=== PATIENT | female | born 1995 | race Caucasian/White ===

== ENCOUNTER 2024-05-20 22:19 | Inpatient (IN) | payer OTHER, SELFPAY ==
--- NOTE | ~2024-05-20 | CT_ITS ---
EXAMINATION: CT ABDOMEN AND PELVIS WITH CONTRAST CLINICAL INFORMATION: Upper abdominal pain. Cramping. WBC 20,000. COMPARISON: None available. TECHNIQUE: Multidetector volumetric images were obtained from the superior aspect of the liver through the pubic symphysis following administration 85 mL of Omnipaque 350 intravenous contrast. Sagittal and coronal reformatted images were obtained on the technologist's workstation. Oral contrast: No This CT examination was performed using dose optimization techniques as appropriate, variously including the following: *Automated exposure control *Adjustment of mA and/or kV according to patient size (this includes techniques or standardized protocols for targeted exams where dose is matched to indication/reason for exam; i.e. extremities or head) *Use of iterative reconstruction technique DLP: 692 mGy-cm FINDINGS: LUNG BASES: The visualized lung bases are unremarkable. LIVER, GALLBLADDER, AND BILIARY TREE: The liver is normal in size, shape, and attenuation. No focal hepatic lesion or biliary ductal dilatation is present. The gallbladder is unremarkable with no evidence of radiopaque gallstones, gallbladder wall thickening, or obvious pericholecystic inflammatory changes. PANCREAS: Unremarkable. SPLEEN: Unremarkable. ADRENAL GLANDS: Unremarkable. KIDNEYS AND URETERS: The kidneys are normal in size, shape, and attenuation. No hydronephrosis, hydroureter, or calculi seen. No perinephric stranding. BLADDER: Unremarkable. GASTROINTESTINAL TRACT: Contiguous mural thickening is present in the ascending colon and transverse colon. No intestinal dilatation noted. Normal appearance of the appendix. No free intraperitoneal fluid or gas collections. Normal appearance of the small bowel. A small sliding hiatal hernia is noted. Normal appearance of the duodenum. ABDOMINAL WALL: No significant hernia is appreciated. LYMPH NODES: Normal. VASCULAR: Unremarkable. PELVIC VISCERA: Normal appearance of the uterus and ovaries. OSSEOUS STRUCTURES: Unremarkable. CT/CT abdomen pelvis w IV con IMPRESSION: *Colitis of the ascending and transverse colon. Contiguous concentric inflammatory changes are present in the ascending and transverse colon. Findings may represent C. difficile colitis. Normal appearance of the appendix and terminal ileum. No free intraperitoneal fluid or gas collections. Electronically signed by: Brant Burch MD 05/21/2024 01:37 AM EDT
[2024-05-20 22:26] VITALS: BP 131/55; PULSE 74; RESP 16; TEMP 37.3; O2SAT 99; BMI 35.6
[2024-05-20 22:39] LABS: MANUAL DIFF FLAG NO
[2024-05-20] MEDS: diphenhydrAMINE HCL 50 MG/ML VIAL 25 MG IVPUSH (22:48)
[2024-05-20] MEDS: Acetaminophen 1,000 MG/100 ML PIGGYBACK 400 MG IV (22:48)
[2024-05-20] MEDS: Metoclopramide HCl 10 MG/2 ML VIAL IVPUSH (22:48)
[2024-05-20] MEDS: 0.9 % Sodium Chloride 1,000 ML 999 ML IV (22:53)
[2024-05-20 22:55] LABS: Basophils Absolute Auto 0.1 X10*3/uL (0.0-0.2); Basophils Percent Auto 0.4 % (0-2); Eosinophils Percent Auto 0.1 % (0-4); Hematocrit 35.6 % (37.0-47.0); Hemoglobin 12.3 g/dl (12.0-16.0); Imm Gran Abs Auto 0.21 X10*3/uL (0.00-0.03); Lymphocytes Absolute Auto 2.9 X10*3/uL (1.2-4.9); Lymphocytes Percent Auto 14.5 % (20-40); Mean Corpuscular HGB Conc 34.6 g/dl (31.0-35.0); Mean Corpuscular Hemoglobin 29.1 pg (27.0-33.0); Mean Corpuscular Volume 84.2 fL (80.0-98.0); Mean Platelet Volume 10.7 fL (9.4-12.3); Monocytes Absolute Auto 0.7 X10*3/uL (0.1-1.2); Monocytes Percent Auto 3.5 % (2-11); Neutrophils Absolute Auto 16.1 x10*3/uL (2.0-8.3); Neutrophils Percent Auto 80.5 % (45-73); Platelet Count 375 X10*3/uL (160-400); Red Blood Count 4.23 X10*6/uL (4.20-5.50); Red Cell Distribution Width 13.2 % (11.0-16.0); White Blood Count 20.1 X10*3/uL (4.8-10.8)
[2024-05-20 22:57] LABS: Alanine Aminotransferase 18 U/L (0-31); Albumin Level 4.6 g/dL (3.5-5.0); Alkaline Phosphatase 67 U/L (39-117); Anion Gap 19 (12-20); Aspartate Amino Transferase 31 U/L (5-31); Bilirubin Total 0.3 mg/dL (0.0-1.0); Blood Urea Nitrogen 12 mg/dL (9-16); Calcium 10.4 mg/dL (8.4-10.2); Carbon Dioxide 17 mmol/L (22-29); Chloride 110 mmol/L (96-108); Creatinine Clr Calc Pharmacy 132.7; Estimated Glomerular Filt Rate > 60; Glucose Random 145 mg/dL (60-115); Lipase 15 U/L (8-78); Potassium 3.2 mmol/L (3.3-5.1); Sodium 143 mmol/L (135-145); Total Protein 7.8 g/dL (6.5-8.0)
--- NOTE | 2024-05-20 23:01 | ED_ITS ---
HPI - Nausea/Vomiting/Diarrhea General Chief complaint: Nausea/Vomiting/Diarrhea Stated complaint: VOMITING FOR 2 HOURS Time Seen by Provider: 05/20/24 22:34 Source: patient, EMS and old records reviewed Mode of arrival: EMS Limitations: no limitations History of Present Illness ED Provider: PHILIPPE HPI Narrative: 28 yo female with PMH of anxiety and depression prio E. Coli stool positive in past who notes at 8pm tonight she developed abrupt onset n/v fevers, chills after eating Thai food with other people who did not get sick. She has diffuse pain, n/v but no diarrhea. No travel or abx use. No drug use or withdrawal. MD elicited complaint: nausea, vomiting and abdominal pain Onset (ago): hour(s) (8pm) Description of vomiting: watery Associated nausea: Yes Associated abdominal pain: Yes Location of pain: diffuse Radiation: diffuse Pain consistency: constant Severity: severe Quality: cramping Exacerbating factors: eating, vomiting and movement Relieving factors: none Associated symptoms: fever/chills, loss of appetite, malaise, nausea/vomiting and weakness Related Data Allergies Allergy/AdvReac Type Severity Reaction Status Date / Time almond AdvReac Rash Verified 05/20/24 22:27 morgan AdvReac Rash Verified 05/20/24 22:27 Review of Systems 2 Review of Systems: Constitutional : No Weight loss, No Fever, pos Chills ENT/Mouth : No sore throat, No Rhinorrhea Eyes: No Swelling, No Redness Cardiovascular : No Chest Pain, No SOB, NoEdema Respiratory : No Cough, No Sputum, No Wheezing Gastrointestinal : Positive Nausea, Positive Vomiting, no Diarrhea, positive abdominal Pain, No Hematochezia, No Melena Genitourinary : No Dysuria, No Urinary Frequency, No Hematuria, No Urgency Musculoskeletal : No joint pain, No Myalgias, No Joint Swelling Skin : No Skin Lesions, No rash Neuro : No Weakness, No Numbness, No Dizziness, No Headache Psych : No Anxiety/Panic, No Depression All other systems reviewed and are negative. Gastrointestinal: Gastrointestinal: Reports nausea PMFSH Past Medical History Attestation statement: The following information was validated with the patient. Source: old records reviewed Medical History (Updated 05/21/24 @ 01:50 by Elisabeth Brooks DO) Anxiety Social History Social History (Updated 05/20/24 @ 23:31 by Elisabeth Brooks DO) Patient Tobacco Use Status: Never used Tobacco Advance Directives: No Advance Directives Information Provided: No Do you have a plan to hurt others: No Plan Patient : No Physical Exam 2 Vital Signs: Vital Signs: Last Vital Signs Temp 98.0 F 05/21/24 00:00 Pulse 88 05/21/24 00:00 Resp 18 05/21/24 01:43 BP 124/78 05/21/24 00:00 Pulse Ox 99 05/21/24 00:00 O2 Del Method Room Air 05/21/24 00:00 BMI result Body Mass Index 35.6 Appearance: Alert. Oriented X3. dry heaving mild acute distress. anxious appearing. patient has no emesis in bag she does a forceful cough but no emesis comes up Eyes: Pupils equal, round and reactive to light. ENT: Pharynx dry MM Neck: Normal inspection. Neck supple. CVS: Normal heart rate and rhythm. Pulses normal. Respiratory: No respiratory distress. Breath sounds normal. Abdomen: Soft and mild diffuse ttp no rebound or guarding Skin: Skin warm and dry. pale skin color. Normal skin turgor. Extremities: No lower extremity edema. Neuro: Oriented X 3. No motor deficit. No sensory deficit. Course Course Course Narrative: UA appears contaminated at this time Reevaluation(s) Reevaluation #1: unfortunately patient has forced cough and is inducing emesis at this time will obtain EKG and she may need IM haldol (droperidol shortage) Reevaluation #2: qtc 450 at this time IM haldol ordered Reevaluation #3: at this time infection suspected 144am. IV zosyn ordered she has had no diarrhea to suggest c diff. Additional Reevaluation(s): repeat labs ordered suspect admission given intractable n/v Medications Administered Generic Name Dose Route Start Last Admin Trade Name Freq PRN Reason Stop Dose Admin Potassium Chloride 10 meq in 100 mls @ 100 mls/hr 05/21/24 00:15 05/21/24 01:45 Potassium Chloride/H20 IV 05/21/24 02:14 100 mls/hr Q1H ADELFO Administration Discontinued Medications Generic Name Dose Route Start Last Admin Trade Name Freq PRN Reason Stop Dose Admin Diphenhydramine HCl 25 mg 05/20/24 22:42 05/20/24 22:48 Diphenhydramine Hcl 50 Mg/Ml Vial IVPUSH 05/20/24 22:43 25 mg ONCE ONE Administration Haloperidol Lactate 5 mg 05/21/24 01:26 05/21/24 01:42 Haloperidol Lactate 5 Mg/Ml Vial IM 05/21/24 01:27 5 mg STAT STA Administration Acetaminophen 1,000 mg in 100 mls @ 400 mls/hr 05/20/24 22:42 05/20/24 23:10 Ofirmev IV 05/20/24 22:56 Infused ONCE ONE Infusion Sodium Chloride 1,000 mls @ 999 mls/hr 05/20/24 22:42 05/20/24 23:55 Ns IV 05/20/24 23:42 Infused .Q1H1M ONE Infusion Sodium Chloride 1,000 mls @ 999 mls/hr 05/21/24 00:02 05/21/24 00:29 Ns IV 05/21/24 01:02 999 mls/hr .Q1H1M ONE Administration Iohexol 85 ml 05/20/24 23:56 05/20/24 23:57 Iohexol 350 Mg/Ml 100 Ml Infus..Btl IV 05/20/24 23:57 85 ml ONCE ONE Administration Lorazepam 1 mg 05/20/24 22:59 05/20/24 23:12 Lorazepam 2 Mg/Ml Vial IVPUSH 05/20/24 23:00 1 mg STAT STA Administration Metoclopramide HCl 10 mg 05/20/24 22:42 05/20/24 22:48 Metoclopramide Hcl 10 Mg/2 Ml Vial IVPUSH 05/20/24 22:43 10 mg ONCE ONE Administration Morphine Sulfate 4 mg 05/21/24 01:06 05/21/24 01:43 Morphine Sulfate 4 Mg/Ml Cartridge IVPUSH 05/21/24 01:07 4 mg ONCE ONE Administration Protocol Medical Decision Making Medical Decision Making MDM Narrative: 28 yo female with PMH hx of anxiety/depression here with c/o abrupt onset n/v and abdominal cramps but no diarrhea after eating turkmen food the pain is diffuse not localized - she has been vomiting since 8pm at this time IVF, labs, CT scan of abdomen for any acute pathology - colitis/biliary colic. I have ordered nausea medications and hydration. Differential Diagnosis Differential Diagnoses: The differential diagnosis associated with the presentation includes food toxicity, enteritis, dehydration, marijuana induced emesis syndrome Admission/Observation Consideration of admission/observation: Escalation of care including admission/observation considered will admit given repeated nausea medications and no improvement Consult Healthcare Provider Management of the patient was discussed with: Hospitalist (will admit) Lab Data MDM Lab Attestation statement: I reviewed the patient's lab results. 05/20/24 22:31 05/20/24 22:31 Labs: Lab Results 05/20/24 05/20/24 05/20/24 Range/Units 22:31 23:25 23:36 WBC 20.1 H (4.8-10.8) X10*3/uL RBC 4.23 (4.20-5.50) X10*6/uL Hgb 12.3 (12.0-16.0) g/dl Hct 35.6 L (37.0-47.0) % MCV 84.2 (80.0-98.0) fL MCH 29.1 (27.0-33.0) pg MCHC 34.6 (31.0-35.0) g/dl RDW 13.2 (11.0-16.0) % Plt Count 375 (160-400) X10*3/uL MPV 10.7 (9.4-12.3) fL Immature Gran % (Auto) 1.0 H (0.0-0.4) % Neut % (Auto) 80.5 H (45-73) % Lymph % (Auto) 14.5 L (20-40) % [place] % (Auto) 3.5 (2-11) % Eos % (Auto) 0.1 (0-4) % Baso % (Auto) 0.4 (0-2) % Lymph # (Auto) 2.9 (1.2-4.9) X10*3/uL [place] # (Auto) 0.7 (0.1-1.2) X10*3/uL Eos # (Auto) 0.0 (0.0-0.4) X10*3/uL Baso # (Auto) 0.1 (0.0-0.2) X10*3/uL Abs Immat Gran (auto) 0.21 H (0.00-0.03) X10*3/uL Absolute Neuts (auto) 16.1 H (2.0-8.3) x10*3/uL Absolute Nucleated RBC 0.000 (0.0-0.012) X10*3/uL Nucleated RBC % (auto) 0.0 (0.0-0.2) /100WBC Sodium 143 (135-145) mmol/L Potassium 3.2 L (3.3-5.1) mmol/L Chloride 110 H (96-108) mmol/L Carbon Dioxide 17 L (22-29) mmol/L Anion Gap 19 (12-20) BUN 12 (9-16) mg/dL Creatinine 0.67 (0.5-1.4) mg/dL Estim Creat Clear Calc 132.7 Estimated GFR > 60 Random Glucose 145 H (60-115) mg/dL Lactic Acid 2.3 H* (0.5-2.0) mmol/L Calcium 10.4 H (8.4-10.2) mg/dL Total Bilirubin 0.3 (0.0-1.0) mg/dL AST 31 (5-31) U/L ALT 18 (0-31) U/L Alkaline Phosphatase 67 (39-117) U/L Total Protein 7.8 (6.5-8.0) g/dL Albumin 4.6 (3.5-5.0) g/dL Lipase 15 (8-78) U/L Urine Color Yellow Urine Appearance Cloudy Urine pH 6.0 (5.0-9.0) Ur Specific [place] >= 1.030 H (1.005-1.025) Urine Protein 30 (1+) H (Neg-Trace) mg/dL Urine Glucose (UA) Negative (Negative) mg/dL Urine Ketones 80 (Negative) mg/dL Urine Blood Negative (Negative) Urine Nitrite Negative (Negative) Ur Leukocyte Esterase Small (1+) H (Negative) Urine RBC 0-2 (0-2) /HPF Urine WBC 11-20 H (0-5) /HPF Ur Squamous Epith Cells 3-5 (0-2) /HPF Urine Bacteria None Seen (None Seen) Hyaline Casts 3-5 (0-2) /LPF Urine Test NEGATIVE (NEGATIVE) Urine Opiates Screen Not Detected (Not Detect) Ur Buprenorphine Scrn Not Detected (Not Detect) ng/mL Ur Oxycodone Screen Not Detected (Not Detect) ng/mL Urine Methadone Screen Not Detected (Not Detect) ng/mL Urine Fentanyl Screen Not Detected (Not Detect) Ur Barbiturates Screen Not Detected (Not Detect) Ur Phencyclidine Scrn Not Detected (Not Detect) Ur Amphetamines Screen Not Detected (Not Detect) U Benzodiazepines Scrn Not Detected (Not Detect) Urine Cocaine Screen Not Detected (Not Detect) U Marijuana (THC) Screen POSITIVE H (Not Detect) Influenza Type A (PCR) NEGATIVE (Negative) Influenza Type B (PCR) NEGATIVE (Negative) RSV RNA Qual (PCR) NEGATIVE (Negative) SARS-CoV-2 RNA (RT-PCR) NEGATIVE (Negative) Independent Interpretation I performed an independent interpretation of an: EKG and CT Scan (colitis) Interpretation: Rate: 76 Rhythm: NSR [place]: normal Normal P waves. Normal HEBERT. Normal QRS complex. ST T wave : no MARIBELL, flat t wave V1 qTC: 450 prior studies: no acute ischemia The study has been interpreted contemporaneously by me. . Radiology Impression Discussion of test interpretation with radiology: I have reviewed the radiologist's reading. Independent Historian Clinical information obtained from an independent historian. History obtained from or confirmed by: EMS Critical Care Time Critical Care Time Critical Care Time: Yes Total Critical Care Time: 60 Attestation: IVF x 2L, IV morphine for pain, IV potassium, repeat medications I attest to this time spent taking care of the patient Discharge Plan Discharge Clinical Impression: Acidosis, lactic, Acute hypokalemia, Colitis Elevated WBC count Qualifiers: Leukocytosis type: unspecified Qualified Code(s): D72.829 - Elevated white blood cell count, unspecified Nausea & vomiting Qualifiers: Vomiting type: unspecified Qualified Code(s): R11.2 - Nausea with vomiting, unspecified Patient Disposition: Admitted As Inpatient Print Language: Yoruba
[2024-05-20] MEDS: LORazepam 2 MG/ML VIAL 1 MG IVPUSH (23:12)
[2024-05-20 23:15] LABS: Influenza A PCR NEGATIVE (Negative); Influenza B PCR NEGATIVE (Negative); Resp Syncy Virus RNA Qual PCR NEGATIVE (Negative); SARS COV2 PCR INHOUSE NEGATIVE (Negative)
[2024-05-20 23:50] LABS: Appearance Urine Cloudy; Color Urine Yellow; Glucose Urine UA Negative (Negative); Leukocyte Esterase Urine Small (1+) (Negative); Nitrite Urine Negative (Negative); Specific Gravity - Urine >= 1.030 (1.005-1.025); UMIC TRIGGER UACC YES; Urine Blood Negative (Negative); Urine Ketones 80 mg/dL (Negative); Urine Protein 30 (1+) mg/dL (Neg-Trace)
[2024-05-20 23:51] LABS: UPreg QC Valid YES; Urine Pregnancy NEGATIVE (NEGATIVE)
[2024-05-20 23:53] LABS: Bacteria Urine None Seen (None Seen); RBC Urine 0-2 /HPF (0-2); UACC Culture Trigger YES
[2024-05-20] MEDS: iohexoL 350 MG/ML 100 ML INFUS..BTL 85 ML IV (23:57)
[2024-05-21] VITALS (7 sets, daily range): BP systolic 106–124; BP diastolic 55–78; PULSE 77–97; RESP 18; TEMP 36.1–37.1; O2SAT 94–99; BMI 36.7
[2024-05-21 00:03] LABS: Lactic Acid 2.3 mmol/L (0.5-2.0)
[2024-05-21 00:06] LABS: Amphetamine Screen Urine Not Detected (Not Detect); Barbiturates, Urine Not Detected (Not Detect); Benzodiazepines Screen Urine Not Detected (Not Detect); Buprenorphine Scr Not Detected (Not Detect); Cannabinoid Screen Urine POSITIVE (Not Detect); Cocaine Screen Urine Not Detected (Not Detect); Fentanyl, urine Not Detected (Not Detect); Methadone Screen, Urine Not Detected (Not Detect); Opiate Screen Urine Not Detected (Not Detect); Oxycodone Screen Urine Not Detected (Not Detect); Phencyclidine Screen Urine Not Detected (Not Detect)
--- NOTE | 2024-05-21 00:10 | MHC.EDTECH ---
This tech took over care of patient at 2300,rounded and introduced self to patient,vitals taken,pt placed in hospital attire,patient ambulated to the bathroom with a steady gait,call moreira in reach
[2024-05-21] MEDS: 0.9 % Sodium Chloride 1,000 ML 999 ML IV (00:29)
[2024-05-21] MEDS: Potassium Chloride/H20 10 MEQ/100 ML PIGGYBACK 100 MEQ IV ×2 (00:29→01:45)
--- NOTE | 2024-05-21 01:13 | ECG_ITS ---
Test Reason : QTC Blood Pressure : / mmHG Vent. Rate : 076 BPM Atrial Rate : 076 BPM P-R Int : 172 ms QRS Dur : 082 ms QT Int : 400 ms P-R-T Axes : 057 032 -02 degrees QTc Int : 450 ms Normal sinus rhythm Nonspecific T wave abnormality Abnormal ECG No previous ECGs available Referred By: Elisabeth Brooks Electronically Signed By:LISA HANEY
--- NOTE | 2024-05-21 01:26 | MHC.EDTECH ---
EKG completed per order,signed by provider
--- NOTE | 2024-05-21 01:40 | PC.NURSE ---
Patient noted to have forced cough and self inducing vomiting. Dr Brooks made aware.
[2024-05-21] MEDS: Haloperidol Lactate 5 MG/ML VIAL IM (01:42)
[2024-05-21] MEDS: Morphine Sulfate 4 MG/ML CARTRIDGE IVPUSH (01:43)
[2024-05-21 01:45] LABS: Reflex Lactate? Lactic Acid Added
[2024-05-21 02:04] LABS: Hemoglobin 10.9 g/dl (12.0-16.0); Mean Corpuscular HGB Conc 34.1 g/dl (31.0-35.0); Mean Corpuscular Hemoglobin 29.1 pg (27.0-33.0); Mean Corpuscular Volume 85.3 fL (80.0-98.0); Mean Platelet Volume 10.4 fL (9.4-12.3); Platelet Count 278 X10*3/uL (160-400); Red Blood Count 3.75 X10*6/uL (4.20-5.50); Red Cell Distribution Width 13.2 % (11.0-16.0); White Blood Count 18.2 X10*3/uL (4.8-10.8)
--- NOTE | 2024-05-21 02:05 | PC.NURSE ---
Patient medicated per MAR, labs drawn and sent. Patient currently offers no complaints call moreira in reach, plan of care ongoing.
[2024-05-21] MEDS: Piperacillin Sodium/Tazobactam 3.375 GM in 0.9 % Sodium Chloride 50 ML IV ×3 (02:13→17:29)
[2024-05-21 02:23] LABS: ~Lactic Acid-LAB USE ONLY 2.2 mmol/L (0.5-2.0)
--- NOTE | 2024-05-21 02:24 | PC.NURSE ---
Lab called in critical lactic level 2.2, Dr. Stone notified.
[2024-05-21 03:04] LABS: Cancel Lactic Acid Canceled
--- NOTE | 2024-05-21 03:04 | P.HPHOSP_ITS ---
History of Present Illness Date of Service: 05/21/24 Attending physician on admission: Nohemy Duncan Chief Complaint: Abdominal pain, nausea and vomiting Ysabel Fermin is a 28 years old woman with past medical history significant for E coli stool positive and depression presents to the emergency department complaining of periumbilical abdominal pain associated with nausea and multiple events of vomiting diastolic last night around 20:00. Last meal before symptom was [place] food. Reported subjective fever and chills. She denied diarrhea. Did not report any headache, palpitations or dizziness. Did not report any cardiopulmonary or genitourinary symptoms. Denies history of STDs. She consumes marijuana (edibles) almost every day. Denies illicit drug use, tobacco smoking or alcohol abuse. In the ED, she was found to have normal vital signs. Blood workup showed leukocytosis of 20.1 and lactic acidosis of 2.3. There is hyperchloremia and hypokalemia. CO2 is 17. Urinalysis consistent with UTI. Urine drug screen spasticity for marijuana. Viral testing for influenza, RSV and COVID-19 is negative. Abdomen and pelvis CT scan with IV contrast showed finding consistent with colitis of the ascending and transverse colon with normal appearance of the appendix and terminal ileum without free intraperitoneal fluid or gas collections. ECG showed normal sinus rhythm, heart rate 76 bpm. ED tx: Reglan 10 mg IV, Benadryl 25 mg IV, acetaminophen ground g IV, Ativan 1 mg IV, NS 2 L bolus, KCl IV, Haldol 5 mg IM, Zosyn 3.375 g IV Review of Systems 2 Review of Systems: All 12 systems were reviewed and normal except as noted in HPI. [facility] Medical History (Updated 05/21/24 @ 01:50 by Elisabeth Brooks DO) Anxiety Social History (Updated 05/20/24 @ 23:31 by Elisabeth Brooks DO) Patient Tobacco Use Status: Never used Tobacco Advance Directives: No Advance Directives Information Provided: No Do you have a plan to hurt others: No Plan Patient : No Meds Allergies Allergy/AdvReac Type Severity Reaction Status Date / Time almond AdvReac Rash Verified 05/20/24 22:27 morgan AdvReac Rash Verified 05/20/24 22:27 Active Medications: Current Medications Lactated Ringer's (Lr) 1,000 mls @ 100 mls/hr IVCONT .Q10H [place] Sodium Chloride (0.9 % Sodium Chloride Flush 3 Ml Syringe) 3 ml IVFLUSH QSHIFT [place] Home Medications ?Medication ?Instructions ?Recorded ?Confirmed ?Last Taken ?Type hydroxyzine HCl 50 mg tablet 50 mg PO BEDTIME 05/21/24 05/21/24 Unknown History sertraline 100 mg tablet 100 mg PO DAILY 05/21/24 05/21/24 Unknown History Physical Exam 2 Vital Signs and Narrative: Vital Signs: Last Vital Signs Temp 98.0 F 05/21/24 00:00 Pulse 88 05/21/24 00:00 Resp 18 05/21/24 01:43 BP 124/78 05/21/24 00:00 Pulse Ox 99 05/21/24 00:00 O2 Del Method Room Air 05/21/24 00:00 BMI result Body Mass Index 35.6 Constitutional - Drowsy. Able to answer questions. HEENT - PER, EOMI. Normal sclerae. Dry oral mucosa. Heart - S1S2, RRR, No murmurs Lungs - Normal lung expansion, Normal respiratory effort, No respiratory distress, CTA bilaterally Abdomen l - increased bowel sounds, no distention, periumbilical tenderness without guarding or rebound. Extremities - no calf tenderness bilaterally, no swelling Musculoskeletal - Normal inspection, normal ROM Skin - Warm/Dry Neurological - Drowsy focal weakness grossly noted. Normal speech. Psychological - Depressed affect Results Labs 05/21/24 01:58 05/20/24 22:31 Labs: Laboratory Results - last 24 hr 05/20/24 05/20/24 05/20/24 22:31 23:25 23:36 MCV 84.2 MCH 29.1 MCHC 34.6 RDW 13.2 Plt Count 375 MPV 10.7 Immature Gran % (Auto) 1.0 H Neut % (Auto) 80.5 H Lymph % (Auto) 14.5 L [place] % (Auto) 3.5 Eos % (Auto) 0.1 Baso % (Auto) 0.4 Lymph # (Auto) 2.9 [place] # (Auto) 0.7 Eos # (Auto) 0.0 Baso # (Auto) 0.1 Abs Immat Gran (auto) 0.21 H Absolute Neuts (auto) 16.1 H Absolute Nucleated RBC 0.000 Nucleated RBC % (auto) 0.0 Anion Gap 19 Estim Creat Clear Calc 132.7 Estimated GFR > 60 Random Glucose 145 H Lactic Acid 2.3 H* Lactic Acid F/U @ 2Hr Calcium 10.4 H Total Bilirubin 0.3 AST 31 ALT 18 Alkaline Phosphatase 67 Total Protein 7.8 Albumin 4.6 Lipase 15 Urine Color Yellow Urine Appearance Cloudy Urine pH 6.0 Ur Specific [place] >= 1.030 H Urine Protein 30 (1+) H Urine Glucose (UA) Negative Urine Ketones 80 Urine Blood Negative Urine Nitrite Negative Ur Leukocyte Esterase Small (1+) H Urine RBC 0-2 Urine WBC 11-20 H Ur Squamous Epith Cells 3-5 Urine Bacteria None Seen Hyaline Casts 3-5 Urine Test NEGATIVE Urine Opiates Screen Not Detected Ur Buprenorphine Scrn Not Detected Ur Oxycodone Screen Not Detected Urine Methadone Screen Not Detected Urine Fentanyl Screen Not Detected Ur Barbiturates Screen Not Detected Ur Phencyclidine Scrn Not Detected Ur Amphetamines Screen Not Detected U Benzodiazepines Scrn Not Detected Urine Cocaine Screen Not Detected U Marijuana (THC) Screen POSITIVE H Influenza Type A (PCR) NEGATIVE Influenza Type B (PCR) NEGATIVE RSV RNA Qual (PCR) NEGATIVE SARS-CoV-2 RNA (RT-PCR) NEGATIVE 05/21/24 01:58 MCV 85.3 MCH 29.1 MCHC 34.1 RDW 13.2 Plt Count 278 D MPV 10.4 Immature Gran % (Auto) Neut % (Auto) Lymph % (Auto) [place] % (Auto) Eos % (Auto) Baso % (Auto) Lymph # (Auto) [place] # (Auto) Eos # (Auto) Baso # (Auto) Abs Immat Gran (auto) Absolute Neuts (auto) Absolute Nucleated RBC 0.000 Nucleated RBC % (auto) 0.0 Anion Gap Estim Creat Clear Calc Estimated GFR Random Glucose Lactic Acid Lactic Acid F/U @ 2Hr 2.2 H* Calcium Total Bilirubin AST ALT Alkaline Phosphatase Total Protein Albumin Lipase Urine Color Urine Appearance Urine pH Ur Specific [place] Urine Protein Urine Glucose (UA) Urine Ketones Urine Blood Urine Nitrite Ur Leukocyte Esterase Urine RBC Urine WBC Ur Squamous Epith Cells Urine Bacteria Hyaline Casts Urine Test Urine Opiates Screen Ur Buprenorphine Scrn Ur Oxycodone Screen Urine Methadone Screen Urine Fentanyl Screen Ur Barbiturates Screen Ur Phencyclidine Scrn Ur Amphetamines Screen U Benzodiazepines Scrn Urine Cocaine Screen U Marijuana (THC) Screen Influenza Type A (PCR) Influenza Type B (PCR) RSV RNA Qual (PCR) SARS-CoV-2 RNA (RT-PCR) Imaging Radiologist's Impressions: Impressions Abdomen/Pelvis CT 05/20/24 23:58 IMPRESSION: *Colitis of the ascending and transverse colon. Contiguous concentric inflammatory changes are present in the ascending and transverse colon. Findings may represent C. difficile colitis. Normal appearance of the appendix and terminal ileum. No free intraperitoneal fluid or gas collections. Electronically signed by: Brant Burch MD 05/21/2024 01:37 AM EDT Assessment and Plan (1) Colitis: Status: Acute (2) Nausea & vomiting: Qualifiers: Vomiting type: unspecified Qualified Code(s): R11.2 - Nausea with vomiting, unspecified Status: Acute (3) Acute hypokalemia: Status: Acute (4) Acidosis, lactic: Status: Acute (5) Elevated WBC count: Qualifiers: Leukocytosis type: unspecified Qualified Code(s): D72.829 - Elevated white blood cell count, unspecified Status: Acute Plan Ysabel Fermin is a 28 y/o woman admitted with: * Abdominal pain, nausea and vomiting; no diarrhea; possible secondary to colitis and/or cannabinoid hyperemesis. Admit to hospitalist service. Continue IV fluids. Continue empiric IV antibiotic therapy with Zosyn. Antiemetic therapy as needed. IV pain meds. Stool cultures. Patient advised to avoid marijuana consumption. * Hypokalemia, secondary to vomiting. Replete as needed. Continue to monitor potassium level. * Mild lactic acidosis, not convicted this is secondary to severe sepsis. Unclear etiology. Blood culture obtained -will follow results. * Leukocytosis, likely secondary to vomiting. Continue IV fluids. Continue to monitor WBC count. * Presumed UTI. Continue Zosyn. Check urine culture. * Depression. Continue home medications when able. DVT prophylaxis: Early ambulation Code status: Full Patient will need hospitalization for at least 2 midnights for ongoing abdominal pain, nausea and vomiting due to marijuana use and acute colitis; will need IV fluids, antiemetic therapy, pain control and empiric IV antibiotic therapy Quality Stroke Does the patient have a stroke diagnosis?: No VTE Prior VTE?: No VTE Risk Level:: Medical - moderate - high VTE Device Contraindication: N/A - Device Ordered VTE Drug Contraindication: Treatment Not Indicated
[2024-05-21] MEDS: Lactated Ringers 1,000 ML 100 ML IVCONT ×2 (03:40→17:30)
[2024-05-21 04:01] LABS: Reflex Lactate? 2 Y
[2024-05-21] MEDS: Prochlorperazine Edisylate 10 MG/2 ML VIAL 5 MG IVPUSH (04:46)
[2024-05-21 05:34] LABS: Alanine Aminotransferase 26 U/L (0-31); Albumin Level 4.7 g/dL (3.5-5.0); Alkaline Phosphatase 66 U/L (39-117); Anion Gap 18 (12-20); Aspartate Amino Transferase 40 U/L (5-31); Bilirubin Total 0.3 mg/dL (0.0-1.0); Blood Urea Nitrogen 7 mg/dL (9-16); Calcium 8.6 mg/dL (8.4-10.2); Carbon Dioxide 16 mmol/L (22-29); Chloride 109 mmol/L (96-108); Creatinine Clr Calc Pharmacy 141.2; Estimated Glomerular Filt Rate > 60; Glucose Random 131 mg/dL (60-115); Sodium 139 mmol/L (135-145); Total Protein 8.2 g/dL (6.5-8.0)
[2024-05-21] MEDS: Pantoprazole Sodium 40 MG/10 ML VIAL IVPUSH (06:30)
[2024-05-21 06:59] LABS: Basophils Percent Auto 0.1 % (0-2); Hematocrit 34.3 % (37.0-47.0); Hemoglobin 11.3 g/dl (12.0-16.0); Imm Gran Abs Auto 0.05 X10*3/uL (0.00-0.03); Imm Gran Pct Auto 0.3 % (0.0-0.4); Lymphocytes Absolute Auto 0.7 X10*3/uL (1.2-4.9); Lymphocytes Percent Auto 4.4 % (20-40); MANUAL DIFF FLAG SCAN; Mean Corpuscular HGB Conc 32.9 g/dl (31.0-35.0); Mean Corpuscular Hemoglobin 28.8 pg (27.0-33.0); Mean Corpuscular Volume 87.3 fL (80.0-98.0); Mean Platelet Volume 10.4 fL (9.4-12.3); Monocytes Absolute Auto 0.3 X10*3/uL (0.1-1.2); Monocytes Percent Auto 1.7 % (2-11); Neutrophils Absolute Auto 14.3 x10*3/uL (2.0-8.3); Neutrophils Percent Auto 93.5 % (45-73); Platelet Count 288 X10*3/uL (160-400); Red Blood Count 3.93 X10*6/uL (4.20-5.50); Red Cell Distribution Width 13.2 % (11.0-16.0); SCAN SMEAR FLAG 1; White Blood Count 15.3 X10*3/uL (4.8-10.8)
--- NOTE | 2024-05-21 07:21 | PC.NURSE ---
this nurse took over patient care of patient from [facility] at 7am. pt sleeping, woke to verbal stimulus, vitals previously stable, IVF running per order, pt awaiting inpt bed, will continue plan of care
[2024-05-21 07:31] LABS: SLIDE REVIEW VERIFIED
--- NOTE | 2024-05-21 08:10 | PHA.MEDREC ---
Pharmacy Consult ? Medication Reconciliation RN has completed the medication reconciliation,[facility] reviewed.
--- NOTE | 2024-05-21 11:09 | MHC.CM.PN ---
PT IS A STUDENT IS INDEPENDENT HAS OWN RIDE HOME
--- NOTE | 2024-05-21 12:21 | HO.PM.IMPN ---
Subjective Subjective Date of Service: 05/21/24 Interval History: abd pain Review of Systems still has abd pain no nausea or vomiting Physical Exam Vital Signs: Vital Signs: Last Vital Signs Temp 96.9 F 05/21/24 09:35 Pulse 77 05/21/24 09:35 Resp 18 05/21/24 09:35 BP 106/55 L 05/21/24 09:35 Pulse Ox 94 05/21/24 09:35 O2 Del Method Room Air 05/21/24 09:35 BMI result Body Mass Index 36.7 Appearance: Alert.? Oriented X3.. cvs: rrr, [id number] , no murmur res: clear to auscultation ,no rhonchii or wheezing abd: no rebound or guarding, abd pain unchanged , bs present. ext pulses present , no cyanosis . neuro: axo3 , nonfocal. Objective Data Active Medications Lactated Ringer's (Lr) 1,000 mls @ 100 mls/hr IVCONT .Q10H [facility] Last Admin: 05/21/24 12:05 Dose: Not Given Documented By: SRAVANIEMA Non-Admin Reason: IV Running Piperacillin Sod/Tazobactam (Sod 3.375 gm/ Sodium Chloride) 50 mls @ 100 mls/hr IV Q8H [facility] Last Infusion: 05/21/24 11:19 Dose: Infused Documented By: MARLEY Acetaminophen (Ofirmev) 1,000 mg in 100 mls @ 400 mls/hr IV Q6H PRN PRN Reason: Pain, Moderate(Pain Scale 4-6) Ketorolac Tromethamine (Ketorolac Tromethamine 30 Mg/Ml Vial) 30 mg IVPUSH Q6H PRN PRN Reason: Pain, Severe (Pain Scale 7-10) Pantoprazole Sodium (Pantoprazole Sodium 40 Mg/10 Ml Vial) 40 mg IVPUSH DAILY@0630 [facility] Last Admin: 05/21/24 06:30 Dose: 40 mg Documented By: DEMAR Prochlorperazine Edisylate (Prochlorperazine Edisylate 10 Mg/2 Ml Vial) 5 mg IVPUSH Q6H PRN PRN Reason: Nausea and Vomiting Last Admin: 05/21/24 04:46 Dose: 5 mg Documented By: DEMAR Sodium Chloride (0.9 % Sodium Chloride Flush 3 Ml Syringe) 3 ml IVFLUSH QSHIFT [place] Last Admin: 05/21/24 07:05 Dose: Not Given Documented By: SRI Non-Admin Reason: IV Running Labs 05/21/24 06:51 05/21/24 05:03 Labs: Laboratory Results - last 24 hr 05/20/24 05/20/24 05/20/24 22:31 23:25 23:36 MCV 84.2 MCH 29.1 MCHC 34.6 RDW 13.2 Plt Count 375 MPV 10.7 Immature Gran % (Auto) 1.0 H Neut % (Auto) 80.5 H Lymph % (Auto) 14.5 L [place] % (Auto) 3.5 Eos % (Auto) 0.1 Baso % (Auto) 0.4 Lymph # (Auto) 2.9 [place] # (Auto) 0.7 Eos # (Auto) 0.0 Baso # (Auto) 0.1 Abs Immat Gran (auto) 0.21 H Absolute Neuts (auto) 16.1 H Absolute Nucleated RBC 0.000 Nucleated RBC % (auto) 0.0 Smear Tech's Comments Anion Gap 19 Estim Creat Clear Calc 132.7 Estimated GFR > 60 Random Glucose 145 H Lactic Acid 2.3 H* Lactic Acid F/U @ 2Hr Calcium 10.4 H Magnesium Total Bilirubin 0.3 AST 31 ALT 18 Alkaline Phosphatase 67 Total Protein 7.8 Albumin 4.6 Lipase 15 Urine Color Yellow Urine Appearance Cloudy Urine pH 6.0 Ur Specific [place] >= 1.030 H Urine Protein 30 (1+) H Urine Glucose (UA) Negative Urine Ketones 80 Urine Blood Negative Urine Nitrite Negative Ur Leukocyte Esterase Small (1+) H Urine RBC 0-2 Urine WBC 11-20 H Ur Squamous Epith Cells 3-5 Urine Bacteria None Seen Hyaline Casts 3-5 Urine Test NEGATIVE Urine Opiates Screen Not Detected Ur Buprenorphine Scrn Not Detected Ur Oxycodone Screen Not Detected Urine Methadone Screen Not Detected Urine Fentanyl Screen Not Detected Ur Barbiturates Screen Not Detected Ur Phencyclidine Scrn Not Detected Ur Amphetamines Screen Not Detected U Benzodiazepines Scrn Not Detected Urine Cocaine Screen Not Detected U Marijuana (THC) Screen POSITIVE H Influenza Type A (PCR) NEGATIVE Influenza Type B (PCR) NEGATIVE RSV RNA Qual (PCR) NEGATIVE SARS-CoV-2 RNA (RT-PCR) NEGATIVE 11/02/24 11/02/24 11/02/24 01:58 05:03 06:51 MCV 85.3 87.3 MCH 29.1 28.8 MCHC 34.1 32.9 RDW 13.2 13.2 Plt Count 278 D 288 MPV 10.4 10.4 Immature Gran % (Auto) 0.3 Neut % (Auto) 93.5 H Lymph % (Auto) 4.4 L [place] % (Auto) 1.7 L Eos % (Auto) 0.0 Baso % (Auto) 0.1 Lymph # (Auto) 0.7 L [place] # (Auto) 0.3 Eos # (Auto) 0.0 Baso # (Auto) 0.0 Abs Immat Gran (auto) 0.05 H Absolute Neuts (auto) 14.3 H Absolute Nucleated RBC 0.000 0.000 Nucleated RBC % (auto) 0.0 0.0 Smear Tech's Comments VERIFIED Anion Gap 18 Estim Creat Clear Calc 141.2 Estimated GFR > 60 Random Glucose 131 H Lactic Acid 1.0 Lactic Acid F/U @ 2Hr 2.2 H* Calcium 8.6 D Magnesium 2.0 Total Bilirubin 0.3 AST 40 H ALT 26 Alkaline Phosphatase 66 Total Protein 8.2 H Albumin 4.7 Lipase Urine Color Urine Appearance Urine pH Ur Specific [place] Urine Protein Urine Glucose (UA) Urine Ketones Urine Blood Urine Nitrite Ur Leukocyte Esterase Urine RBC Urine WBC Ur Squamous Epith Cells Urine Bacteria Hyaline Casts Urine Test Urine Opiates Screen Ur Buprenorphine Scrn Ur Oxycodone Screen Urine Methadone Screen Urine Fentanyl Screen Ur Barbiturates Screen Ur Phencyclidine Scrn Ur Amphetamines Screen U Benzodiazepines Scrn Urine Cocaine Screen U Marijuana (THC) Screen Influenza Type A (PCR) Influenza Type B (PCR) RSV RNA Qual (PCR) SARS-CoV-2 RNA (RT-PCR) Assessment and Plan (1) Colitis: Status: Acute (2) Acute hypokalemia: Status: Acute Plan 28 y/o woman admitted with: Abdominal pain, nausea and vomiting; no diarrhea; possible secondary to colitis and/or cannabinoid hyperemesis. Continue IV fluids and empiric IV antibiotic therapy with Zosyn. Antiemetic therapy as needed. IV pain meds. Stool cultures. Patient advised to avoid marijuana consumption. Hypokalemia, secondary to vomiting. Repleted and resolved. Mild lactic acidosis, not convicted this is secondary to severe sepsis. Unclear etiology. Blood culture obtained -will follow results. Leukocytosis, likely secondary to vomiting. Continue IV fluids. Continue to monitor WBC count. Presumed UTI. Continue Zosyn. Check urine culture. Depression. Continue home medications when able. DVT prophylaxis: Early ambulation need hospitalization for ongoing abdominal pain, nausea and vomiting due to marijuana use and acute colitis; will need IV fluids, antiemetic therapy, pain control and empiric IV antibiotic therapy Quality Stroke Does the patient have a stroke diagnosis?: No VTE Prior VTE?: No VTE Risk Level:: Medical - moderate - high VTE Device Contraindication: N/A - Device Ordered VTE Drug Contraindication: Treatment Not Indicated
[2024-05-21] MEDS: Sertraline HCL 100 MG TABLET PO (12:52)
[2024-05-21] MEDS: Ketorolac Tromethamine 30 MG/ML VIAL IVPUSH (17:29)
[2024-05-21] MEDS: Melatonin 3 MG TABLET 6 MG PO (21:49)
[2024-05-21] MEDS: hydrOXYzine HCL 50 MG TABLET PO (21:49)
[2024-05-21] MEDS: 0.9 % Sodium Chloride Flush 3 ML SYRINGE IVFLUSH (21:51)
[2024-05-22] MEDS: Piperacillin Sodium/Tazobactam 3.375 GM in 0.9 % Sodium Chloride 50 ML IV ×2 (02:17→11:15)
[2024-05-22] MEDS: Lactated Ringers 1,000 ML 100 ML IVCONT (02:18)
[2024-05-22 03:56] VITALS: BP 118/71; PULSE 66; RESP 16; TEMP 36.3; O2SAT 98
[2024-05-22] MEDS: Pantoprazole Sodium 40 MG/10 ML VIAL IVPUSH (06:01)
[2024-05-22] MEDS: Sertraline HCL 100 MG TABLET PO (07:26)
[2024-05-22 08:06] VITALS: BP 118/76; PULSE 64; RESP 18; TEMP 36.1; O2SAT 96
[2024-05-22 08:57] LABS: Adenovirus F 40/41 Not Detected (Not Detect.); Astrovirus Not Detected (Not Detect.); Campylobacter Not Detected (Not Detect.); Cryptosporidium Not Detected (Not Detect.); Cyclospora cayetanensis Not Detected (Not Detect.); E. coli EAEC Not Detected (Not Detect.); E. coli EPEC Not Detected (Not Detect.); E. coli ETEC Not Detected (Not Detect.); E. coli STEC Not Detected (Not Detect.); Entamoeba histolytica Not Detected (Not Detect.); Giardia lamblia Not Detected (Not Detect.); Plesiomonas shigelloides Not Detected (Not Detect.); Rotavirus A Not Detected (Not Detect.); Salmonella Not Detected (Not Detect.); Sapovirus Not Detected (Not Detect.); Shigella sp./EIEC Not Detected (Not Detect.); Vibrio Not Detected (Not Detect.); Vibrio Cholerae Not Detected (Not Detect.); Yersinia enterocolitica Not Detected (Not Detect.)
--- NOTE | 2024-05-22 12:21 | MHC.CM.PN ---
PT DCD HOME SELF CARE
[2024-05-22] MEDS: Amoxicillin/Potassium Clav 875 MG TABLET PO (12:22)
--- NOTE | 2024-05-22 12:23 | P.DS_ITS ---
DS: Providers Provider Date of Service: 05/22/24 Date of admission: 05/21/24 02:57 Date of discharge: 05/22/24 Primary care physician: None Physician Attending physician on discharge: David Joe Discharging clinician: David Joe DS: Diagnosis Discharge Diagnosis (1) Colitis: Status: Acute (2) Acute hypokalemia: Status: Acute DS: Summary Hospital Course Hospital Course: HPI: 28 years old woman with past medical history significant for E coli stool positive and depression presents to the emergency department complaining of periumbilical abdominal pain associated with nausea and multiple events of vomiting diastolic last night around 20:00. Last meal before symptom was Indonesian food. Reported subjective fever and chills. She denied diarrhea. Did not report any headache, palpitations or dizziness. Did not report any cardiopulmonary or genitourinary symptoms. Denies history of STDs. She consumes marijuana (edibles) almost every day. Denies illicit drug use, tobacco smoking or alcohol abuse. In the ED, she was found to have normal vital signs. Blood workup showed leukocytosis of 20.1 and lactic acidosis of 2.3. There is hyperchloremia and hypokalemia. CO2 is 17. Urinalysis consistent with UTI. Urine drug screen spasticity for marijuana. Viral testing for influenza, RSV and COVID-19 is negative. Abdomen and pelvis CT scan with IV contrast showed finding consistent with colitis of the ascending and transverse colon with normal appearance of the appendix and terminal ileum without free intraperitoneal fluid or gas collections. ECG showed normal sinus rhythm, heart rate 76 bpm. ED tx: Reglan 10 mg IV, Benadryl 25 mg IV, acetaminophen ground g IV, Ativan 1 mg IV, NS 2 L bolus, KCl IV, Haldol 5 mg IM, Zosyn 3.375 g IV Hospital course: Patient came to the hospital because of abdominal pain nausea vomiting-found to have leukocytosis, CT abdomen showed colitis: gastrointestinal panel sent, in addition patient was found to have hypokalemia mild, also mild acute lactic acidosis, patient was started on IV antibiotics, IV hydration. Acute lactic acidosis possibly related to dehydration/nausea vomiting, not due to sepsis- resolved with hydration. Blood culture negative at 24 hours, UA showed mild pyuria but patient does not have any urinary complaints. Urine culture is strep agalactiae (grp B). With above supportive care patient seems to be improved significantly, no abdominal pain, no nausea vomiting and tolerating diet.GI P panel-? Question of norovirus but needs to be confirmed yet since patient is improved,Above symptoms are likely related to colitis which is improving with IV antibiotics, patient was switched to p.o. Augmentin 875 mg p.o. b.i.d. for 7 days. Above management discussed with the patient detail length she understand and in agreement with the above plan, time spent 40 minute. Time Attestation Total time managing care of this patient today: 40 mintues. Discharge Coordination Time (in mins): 40 min Quality: Safe Use of Opioids Does Pt have an Active Cancer Diagnosis on the Problem List?: No Quality: Stroke Does the patient have a stroke diagnosis?: No Physical Exam Vital Signs: Vital Signs: Last Vital Signs Temp 96.9 F 05/22/24 08:06 Pulse 64 05/22/24 08:06 Resp 18 05/22/24 08:06 BP 118/76 05/22/24 08:06 Pulse Ox 96 05/22/24 08:06 O2 Del Method Room Air 05/22/24 08:06 BMI result Body Mass Index 36.7 Appearance: Alert.? Oriented X3.? cvs: rrr, [id number] . res: clear to auscultation ,no rhonchii or wheezing abd: no rebound or guarding ,nt, bs present. ext pulses present , no cyanosis . neuro: axo3 , nonfocal. DS: Data Data Completed and Pending Labs on day of discharge: Laboratory Results - last 24 hr 05/21/24 12:49 C. difficile Tox B Gene TNP Preliminary micro results at discharge 05/20/24 23:37 Blood Culture - Preliminary Blood - Venous No growth after 24 hours. 05/20/24 23:25 Blood Culture - Preliminary Blood - Venous No growth after 24 hours. Imaging Chest x-ray: Radiologist's impression: ITS Impressions Abdomen/Pelvis CT 05/20/24 23:58 IMPRESSION: *Colitis of the ascending and transverse colon. Contiguous concentric inflammatory changes are present in the ascending and transverse colon. Findings may represent C. difficile colitis. Normal appearance of the appendix and terminal ileum. No free intraperitoneal fluid or gas collections. Electronically signed by: Brant Burch MD 05/21/2024 01:37 AM EDT Discharge Plan Discharge Anticipated Discharge Date/Time: 05/22/24 12:07 Patient Disposition: Home, Self-Care Discharge Diagnosis: acute colitis , hypokalemia Referrals: Physician,None [Primary Care Provider] - 1 Week Discharge Medications: New amoxicillin-pot clavulanate 875-125 mg tablet 1 tab PO BID Qty: 13 0RF Continued sertraline 100 mg tablet 100 mg PO DAILY hydroxyzine HCl 50 mg tablet 50 mg PO BEDTIME Discharge Orders: Discharge Order (Routine); Ordered 05/22/24 Ordered By: David Joe Diet: Advance to usual diet Activity on Discharge: As tolerated Stand Alone Forms: Patient Portal Discharge page Print Language: Albanian Care Plan Goals: Patient came to the hospital because of abdominal pain nausea vomiting-found to have leukocytosis, CT abdomen showed colitis: gastrointestinal panel sent, in addition patient was found to have hypokalemia mild, also mild acute lactic acidosis, patient was started on IV antibiotics, IV hydration. Acute lactic acidosis possibly related to dehydration/nausea vomiting, not due to sepsis- resolved with hydration. Blood culture negative at 24 hours, UA showed mild pyuria but patient does not have any urinary complaints. Urine culture is strep agalactiae (grp B). With above supportive care patient seems to be improved significantly, no abdominal pain, no nausea vomiting and tolerating diet.GI P panel-? Question of norovirus but needs to be confirmed yet since patient is improved,Above symptoms are likely related to colitis which is improving with IV antibiotics, patient was switched to p.o. Augmentin 875 mg p.o. b.i.d. for 7 days. Health Concerns: Follow-up GI panel results outpatient with PCP. Repeat urine culture outpatient as per PCP. Complete Augmentin 875 p.o. b.i.d. for 7 days. Plan of Treatment: As above. Assessment: As above. Patient Instructions: Colitis (ED)
[2024-05-22 13:33] LABS: Anion Gap 16 (12-20); Blood Urea Nitrogen 7 mg/dL (9-16); Calcium 9.1 mg/dL (8.4-10.2); Carbon Dioxide 23 mmol/L (22-29); Chloride 108 mmol/L (96-108); Creatinine Clr Calc Pharmacy 131.1; Estimated Glomerular Filt Rate > 60; Glucose Random 104 mg/dL (60-115); Potassium 3.7 mmol/L (3.3-5.1); Sodium 143 mmol/L (135-145)
[2024-05-25 10:55] LABS: Norovirus Stool PCR NOT DETECTED
== END 2024-05-22 14:21 | disposition home or self-care (01) | DRG 392 ==
LOC: HO.ED 05-21 01:53 → HO.EDOVER 05-21 03:06 → HO.S3 05-21 07:47
PROVIDERS: Admitting Provider Internal Medicine; Emergency Provider Emergency Medicine; Visit Provider Internal Medicine
DX: K52.9 Noninfective gastroenteritis and colitis, unspecified (principal); E87.21 Acute metabolic acidosis; E86.0 Dehydration; E87.6 Hypokalemia; R11.2 Nausea with vomiting, unspecified; F12.90 Cannabis use, unspecified, uncomplicated; E87.8 Other disorders of electrolyte and fluid balance, not elsewhere classified; Z20.822 Contact with and (suspected) exposure to COVID-19; Z79.899 Other long term (current) drug therapy
CPT/HCPCS: 0241U; 36415; 74177; 80048; 80053; 80307; 81001; 81025; 83605; 83690; 83735; 85025; 85027; 87040; 87086; 87147; 87493; 87507; 93005; 99285; J0131; J0737; J1200; J1630; J1885; J2060; J2270; J2470; J2543; J2765; J3480; J7120; Q9967

== ENCOUNTER → 2024-05-21 01:13 | Outpatient (BNV) | payer OTHER, SELFPAY | PROVIDERS: Admitting Provider Internal Medicine; Emergency Provider Emergency Medicine; Visit Provider Internal Medicine | DX: R10.9 Unspecified abdominal pain (principal); R11.2 Nausea with vomiting, unspecified; R94.31 Abnormal electrocardiogram [ECG] [EKG] | CPT/HCPCS: 93010 ==

== ENCOUNTER → 2024-05-21 02:57 | Outpatient (BNV) | payer OTHER, SELFPAY | PROVIDERS: Admitting Provider Internal Medicine; Emergency Provider Emergency Medicine; Visit Provider Internal Medicine | DX: K52.9 Noninfective gastroenteritis and colitis, unspecified (principal); E87.6 Hypokalemia | CPT/HCPCS: 99223; 99239; 99499 ==

== ENCOUNTER 2025-05-06 10:11 | Emergency (ER) | payer OTHER, SELFPAY ==
--- OUTSIDE RECORDS SUMMARY | 2021-05-27 05:30 | XMS_ITS | Continuity of Care Document ---
Author Organization [facility] Address [address] [facility] [address] [place] [id number] Phone Care Team Providers Care Plant Tour Guide Name Role Phone Yue Osorio MD Unavailable Unavailable Allergies, Adverse Reactions, Alerts Substance Reaction Status Criticality No Known Allergies Active No Inform ation Medications Medication Instructions Dosage Effective Dates (start - stop) Status Comments control (unknown strength) Not Available - Active Maxitrol 3.5 mg/g-10,000 unit/g-0.1 % eye ointment apply by ophthalmic route every night a small amount to the affected eyelid - No Longer Active erythromycin 5 mg/gram (0.5 %) eye ointment apply (1CM) by ophthalmic route 2 times every day to the left upper lid - No Longer Active Maxitrol 3.5 mg/g-10,000 unit/g-0.1 % eye ointment apply by ophthalmic route 3 times every day a small amount to the left eyelid - No Longer Active Procedures Procedure Date Stereo Fundus Photos Comprehensive EP (Complete) Intermediate Revisit Intermediate Revisit Intermediate Revisit Dispensed Refraction SCODI--Optic Nerve Comprehensive REY Exam Visual Field Full Threshold Stereo Fundus Photos Comprehensive REY Exam SCODI--Optic Nerve Intermediate Revisit Refraction Visual Field Full Threshold Comprehensive REY Exam Comprehensive REY Exam SCODI--Optic Nerve Comprehensive REY Exam Visual Field Full Threshold Comprehensive REY Exam Gonioscopy SCODI--Optic Nerve Comprehensive REY Exam Comprehensive REY Exam Pachymetry Visual Field Full Threshold SCODI--Optic Nerve Advance Directives Directive Yes / No Effective Date File Name No Information Encounters Encounter Description Practice Location Reason(s) For Visit Diagnoses Date Provider Providers Copied on Encounter [facility] [address], [address] [place] [address], tel:[phone] [place] Stye RLL (chief complaint) Open angle with borderline findings, low risk, bilateralDry eye syndrome of both eyes 1 Devon Turner. [address] [place] [address], [facility], . tel:[phone] Referring Provider: Callum Crawford MD, [address] [place] [address], [facility]. tel:[phone] [facility] [address], [id number], tel:[phone] [place] chalazion (chief complaint) Hordeolum internum of left lower eyelid Oct-2 3-201 8 Jared Gustafson. [address] [place] [address], [facility], . tel:[phone] Referring Provider: Janay Coleman, [address] [place] [address], [id number]. tel:[phone] [facility] [address], [id number], [place] tel:[phone] [place] 10 day f/u hordeolum internum of left lower (chief complaint) Hordeolum internum of left lower eyelid Oct-1 5-201 8 Jared Janay. [address] [place] [address], [id number], [place]. tel:[phone] Referring Provider: Janay Coleman, [address] [place] [address], Critical access hospital. tel:[phone] [facility] [address], [id number], [place] tel:[phone] [place] Emergency (chief complaint) Hordeolum internum of left lower eyelid Oct-0 2-201 8 Jared Janay. [address] [place] [address], [address], [place]. tel:[phone] Referring Provider: Janay Coleman, [address] [place] [address], Critical access hospital. tel:[phone] [facility] [address], [id number], [place] tel:[phone] [place] blurry vision (chief complaint) Open angle with borderline findings, low risk, bilateralMyopia, bilateral Sathish-2 0-201 8 Trubnik Yue. [address] [place] [address], [facility], . tel:[phone] Referring Provider: Callum Crawford MD, [address] [place] [address], [facility]. tel:[phone] [facility] [address], [id number], [place] tel:[phone] [place] glaucoma (chief complaint) OAG Suspect Jan- 8-201 5 Trubnik Yue. [address] [place] [address], [address], . tel:[phone] Referring Provider: Callum Crawford MD, [address] [place] [address], [facility]. tel:[phone] [facility] [address], [id number], tel:[phone] [place] glaucoma suspect (chief complaint) OAG Suspect 5 Trubnik Yue. [address] [place] [address], . tel:[phone] Referring Provider: Callum Crawford MD, [address] [place] [address], [facility]. tel:[phone] [facility] [address], [id number], tel:[phone] [place] OAG SuspectMyopia 4 Trubnik Yue. [address] [place] [address], . tel:[phone] Referring Provider: Callum Crawford MD, [address] [place] [address], [facility]. tel:[phone] [facility] [address], [id number], [place] tel:[phone] [place] Acute Atopic ConjunctivitisOA G Suspect [address] [facility] Rambo. [address] [facility], [facility] [address], [place], [facility], . tel:[phone] [facility] [address], [id number], [place] tel:[phone] [place] No Information 3 Trubnik Yue. [address] [place] [address], [facility], . tel:[phone] Referring Provider: Callum Crawford MD, [address] [place] [address], [facility]. tel:[phone] [facility] [address], [address] [place] [address], tel:[phone] [place] No Information 3 Devon Turner. [address] [place] [address], [facility], . tel:[phone] Referring Provider: Yue Osorio, [address] [place] [address], [facility]. tel:[phone] [facility] [address], [address] [place] [address], tel:[phone] [place] No Information 2 Miguelangelmayravelma Turner. [address] [place] [address], [facility], . [phone] Referring Provider: Callum Crawford MD, [address] [place] [address], [facility]. tel:[phone] [facility] [address], [address] [place] [address], tel:[phone] [place] No Information 2 Rah Parker. [address] [place] [address], [facility], . [phone] Referring Provider: Callum Crawford MD, [address] [place] [address], [facility]. tel:[phone] [facility] [address], [address] [place] [address], tel:[phone] [place] No Information 2 Rah Parker. [address] [place] [address], [facility], . [phone] Referring Provider: Callum Crawford MD, [address] [place] [address], [facility]. tel:[phone] Family History Family Member Type Diagnosis Age At Onset Uncle Problem (finding) Retinal Disorders Father Problem (finding) Heart Disease Mother Problem (finding) cataract Payers Payer name Insurance type Covered green party ID [employer]orkwakua abimbola(s) [facility] Prime O CI [id number] Social History Type Description Quantity Date Captured Comments Alcohol Use Details Unknown Caffeine Use Details Unknown Tobacco Use Status No Information Smoking Status No Information Sex Female Chief Complaint And Reason For Visit From encounter dated '05/27/2021 09:30'. Stye RLL (chief complaint). Description: The 25 year old female presents for evaluation of resolvedStye RLL. Patient notice symptoms started back in february and states that stye keeps coming and going. Patient has been doing warm compress but it has not helped. Reason For Referral Reason For Referral No Information History Of Present Illness Encounter Date Complaint History Of Prese nt Illness Stye RLL The 25 year old female presents for evaluation of resolved Stye RLL. Patient notice symptoms started back in february and states that stye keeps coming and going. Patient has been doing warm compress but it has not helped. chalazion The 22 Year old female presents for 1 week revisit for evaluation of chalazion in the LLL. 10 day f/u hordeolum internum of left lower The 22 Year old female presents for evaluation of 10 day f/u hordeolum internum of left lower eyelid. Pt notes some improvement since the last visit. Ointment- Neomycin/ Polymyxon 0/3 Emergency The 22 Year old female presents for a Emergency. Pt states that she has been experncing a possible sty in the left lower lid. Pt c/o of sty being tender. blurry vision The 21 Year old female presents for evaluation of blurry vision in the right eye and left eye. It affects distance vision. The symptom is occasional. glaucoma The 19 Year old female presents for evaluation of glaucoma in the right eye and left eye. 6 month(s) revisit with HVF/Disc photos and DFE. glaucoma suspect The 18 Year old female presents for 6month follow-up IOP check and OCT for glaucoma suspect in the right eye and left eye. Is not using any drops. PT reports no changes since last visit. Functional Status Date Functional Assessmen t No Information Instructions Date Instruction Additional Infor jolanta Return to Dr. Marc mosley in 1 year for HVF, OCT Mac & RNFL, refraction, and DFE Related to Open angle with borderline findings, low risk, bilateral Impression/Plan Related to Open angle with borderline findings, low risk, bilateral Impression/Plan Related to Dry e ye syndrome of both eyes - Disussed diagnosis in detail with patient. Patient instructed to do warm compresses, lid scrubs with baby shampoo or dove soap and ATs PRN OU.>Advised patient ot STOP >Maxitrol Start >Erythomycin LAMONT 0/2Stressed to the patient to continue warm compress due to the roseacea skin is prone to crustiness. Related to Hordeolum internum of left lower eyelid - Rt to Dr Coleman in 1 month for lid check if needed pt can cancel if the hordeolum is betterRt to Dr Coleman in 4-6 months for REY Related to Hordeolum internum of left lower eyelid - Disussed diagnosis in detail with patient. Patient instructed to do warm compresses, lid scrubs with baby shampoo or dove soap and ATs PRN OU. Discussed diagnosis in detail with patient. Discussed treatment options with patient. Discussed risks and benefits and patient understands. Reassured patient of current condition and treatment. Will continue to observe condition and or symptoms. Related to Hordeolum internum of left lower eyelid - Return in PRN days with Janay Coleman MD for Chalazion Removal.. Related to Hordeolum internum of left lower eyelid - Discussed diagnosi s in detail with patient. Will continue to observe condition and or symptoms.Patient instructed to do warm compresses BID.Start Maxitrol lamont 0/3 Related to Hordeolum internum of left lower eyelid - RT Dr. Coleman in 10-1 4 days for follow up. Related to Hordeolum internum of left lower eyelid - New RX dispensed today. Relate d to Myopia, bilateral - Will continue to m onitor. Discussed diagnosis in detail with patient. Advised patient of condition. Pt exhibits understanding of conditions and findings discussed. Related to Open angle with borderline findings, low risk, bilateral - RT Dr. Osorio 1-2 yrs for REY and OCT RNFL. Related to Open angle with borderline findings, low risk, bilateral - Will continue to m monique. Discussed diagnosis in detail with patient. Advised patient of condition. Pt exhibits understanding of conditions and findings discussed. Discussed all results of exam and testing with patient. Patient exhibits understanding. Related to OAG Suspect - RT in 1 year for OCT/RNFL HVF and DFE Related to OAG Suspect - Continue to monito r.Rt Dr. Osorio in December for HVF, Disc photos and DFE Related to OAG Suspect - Rt Dr. Osorio 6 m onths for HVF , Disc photos and DFE Related to OAG Suspect OAG Suspect OU due t o large C/D.visual field today full and reliable. WNL. - Continue to monitor. OCT RNFL next visit. Related to OAG Suspect - Return in 6 months with Yue Osorio MD for follow up with SUKHWINDER. Related to OAG Suspect Glc. Susp 2ndary inc rease c/d + increase c/d over the past few years Acute atopic conjunctivitis Borderline OAG - Stable today Related to Borderline OAG - Return in 6 months with Yue Osorio MD for follow up with VF. Related to Borderline OAG Assessments Type Assessment Date assessment Open angle with borderline findi ngs, low risk, bilateral assessment Dry eye syndrome of both eyes No impression Diagnosis: Open angl e with borderline findings, low risk, bilateral. Code: H40.013. Side: OUIOP WNL OCT RNFL and MRW OU: Full No FHX impression RAMEZ OU - mildPt with Hx of rec urrent styes Patient Care Teams Name Effective Dates (start - stop) Status Members No Information
[2025-05-06] VITALS (7 sets, daily range): BP systolic 103–169; BP diastolic 55–79; PULSE 89–107; RESP 15–25; TEMP 36.4–36.9; O2SAT 95–99; BMI 33.3
--- NOTE | 2025-05-06 | ECG_ITS ---
Test Reason : VOMITING Blood Pressure : */* mmHG Vent. Rate : 106 BPM Atrial Rate : 106 BPM P-R Int : 148 ms QRS Dur : 76 ms QT Int : 414 ms P-R-T Axes : 57 32 34 degrees QTcB Int : 549 ms Sinus tachycardia Possible Left atrial enlargement ST & T wave abnormality, consider anterior ischemia Abnormal ECG When compared with ECG of 21-May-2024 01:15, QT has lengthened Referred By: Generic ED Physician Electronically Signed By: Jose Patel
--- NOTE | ~2025-05-06 | CT_ITS ---
CLINICAL HISTORY: abd pain nv white count ?infection CT abdomen and pelvis with contrast Comparison: CT - CT ABDOMEN PELVIS W IV CON - 05/06/25 11:30 EDT Findings: No consolidation at the lung bases. Unremarkable gallbladder and bladder. Hepatic steatosis. The other solid organs are unremarkable. Small hiatal hernia. No bowel dilation. Increased submucosal fat in the distal small bowel and throughout the colon, unchanged. A normal appendix is identified. Normal vasculature. No lymphadenopathy. No ascites. No acute osseous abnormality. Impression: No acute findings. This document has been electronically signed by: Cecilia Alvarado MD on 05/06/2025 13:58:51
--- NOTE | 2025-05-06 10:46 | ED.ABDPAIN ---
HPI - Abdominal Pain General Chief Complaint: Abdominal Pain Stated Complaint: vomiting blood since yesterday Time Seen by Provider: 05/06/25 10:43 Source: patient Mode of arrival: ambulatory Limitations: no limitations History of Present Illness ED Provider: ERIKA NUNEZ PA-C HPI narrative: 29 year old female with pmhx significant for colitis, elevated WBC count, and colitis presents to the ED today for evaluation of nausea and vomiting x4 days. Admits to decreased PO intake on Thursday followed by consumption of 1/2 bottle of red wine. Later that night began to feel nauseous and had multiple episodes of vomiting. Admits to dark red coloration to emesis which she attributes to her red wine. Since this time has been unable to tolerate PO intake. Reports feeling dehydrated. Reports taking Zofran around 0800 this morning without improvement. Denies daily ETOH consumptions or history of withdrawals. Endorses daily THC use sine 2021. Denies fever, chills, urinary symptoms. Admits to chronic colitis-type symptoms since an e coli infection 2-3 years ago. She has been hospitalized for this x2 over the past few years with the most recent hospitalization this past summer 2024 in [place]. While hospitalized she reports normal work up including upper/lower endoscopy. She was placed on omeprazole once daily. 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 Denies hx of abdominal surgery. Related Data Home Medications ?Medication ?Instructions ?Recorded ?Confirmed hydroxyzine HCl 50 mg tablet 50 mg PO BEDTIME 05/21/24 05/21/24 sertraline 100 mg tablet 100 mg PO DAILY 05/21/24 05/21/24 Previous Rx's ?Medication ?Instructions ?Recorded acetaminophen 325 mg tablet 650 mg (2 x 325 mg) PO QID PRN 05/22/24 (Tylenol) pain #20 tabs amoxicillin 875 mg-potassium 1 tab PO BID #13 tabs 05/22/24 clavulanate 125 mg tablet metoclopramide HCl 5 mg tablet 10 mg (2 x 5 mg) PO Q6H PRN nausea 05/06/25 (Reglan) and vomiting #20 tabs sucralfate 1 gram tablet (Carafate) 1 g PO TID PRN abdominal pain #30 05/06/25 tabs Allergies Allergy/AdvReac Type Severity Reaction Status Date / Time almond AdvReac Rash Verified 05/06/25 10:27 morgan AdvReac Rash Verified 05/06/25 10:27 Review of Systems Review of Systems Yes all other systems are reviewed and are negative [facility] Past Medical History Attestation statement: The following information was validated with the patient. Source: old records reviewed and nursing notes reviewed Medical History Anxiety Social History Social History Household Members: None Housing: Apartment Do you presently have visiting nurse or other home services: No Patient Tobacco Use Status: Never used Tobacco Second Hand Smoke Exposure: No Substance Use Type: Marijuana service: No Physical Exam ED Vital Signs: Vital Signs - 24 hr 05/06/25 10:27 05/06/25 11:52 05/06/25 12:03 Temperature 97.6 F 97.8 F Pulse Rate 107 H 102 H Respiratory Rate 18 18 15 Blood Pressure 169/79 H 108/58 L Pulse Oximetry 95 99 Oxygen Delivery Method Room Air Room Air 05/06/25 14:08 05/06/25 14:35 05/06/25 15:39 Temperature 97.9 F 98.0 F Pulse Rate 95 90 89 Respiratory Rate 15 18 25 H Blood Pressure 103/64 107/55 L 109/64 Pulse Oximetry 95 97 97 Oxygen Delivery Method Room Air Room Air Room Air 05/06/25 16:59 05/06/25 16:59 Temperature 98.4 F 98.4 F Pulse Rate 90 90 Respiratory Rate 18 18 Blood Pressure 112/71 112/71 Pulse Oximetry 95 95 Oxygen Delivery Method Room Air Room Air BMI result Body Mass Index 33.3 Tachycardic, vitals are otherwise WNL. Afebrile. General: Well appearing, in no acute distress. Skin: Warm, dry, intact. No rashes or lesions. Head: Normocephalic, atraumatic. EENT: Hearing is intact b/l. Conjunctiva clear. PERRLA. EOM intact. Moist mucous membranes.? Neck: Supple without LAD Cardiac: Chest wall symmetric. RRR Lungs: Normal respiratory effort without accessory muscle use. CTA bilaterally. No rales, rhonchi, or wheezes.? Abdomen: obese abdomen, soft, mildly ttp to epigasgtric region with deep palpation. no rebound or guarding. active bs x4. Back: No midline spinous or paraspinal tenderness. No step off deformity. Ext: Upper and lower extremities atraumatic, without tenderness, deformity, swelling or erythema Neuro: AOx3. Normal speech. Ambulating with steady gait Course Course Course Narrative: 1148 -- Patient has a leukocytosis to 24.2 with left shift, likely reactive from 4 days of vomiting. No anemia, H&H stable. chemistry without acute electrolyte abnormality requiring intervention. Patient has an anion gap of 26, likely starvation ketosis. IVF ordered. Liver function AST/ALT mildly elevated, likely secondary to etoh abuse. Beta hcg undetectable - unlikely. EKG showing a QTC of 549, prolonged from priors. She is tachycardic. No acute ischemic changes or ST elevations. Denies any chest pain or palpitations. Will order magnesium prophylactically and recheck EKG. She is tachycardic, likely dehydration. I do not have concern for sepsis at this time. UA pending. CT a/p pending. medicated w/ dilaudid for pain and reglan + benadryl for nausea/vomiting. 1233 -- lactic elevated 8.3 -- more suspicious for starvation ketosis however will treat for infection at this time. Zosyn ordered. CT a/p pending. 1630 -- CT abdomen/pelvis unremarkable. There is a small hiatal hernia. There is no bowel obstruction. UA without infection. > on re-evaluation, she reports significant improvement in symptoms after receiving Dilaudid, Reglan, Benadryl and IV fluids. She is sitting comfortably, talking on the phone. Her exam is benign. > repeat labs show improvement in WBCs to 18.3, slight drop in H&H likely dilution due to IV fluid rehydration. Renal function back to baseline. Closure of anion gap. Improvement in lactic acid from 8.3 to 2.5. Repeat EKG shows normalization of QT interval after receiving magnesium. > discussed all results with patient. she is tolerating PO and feels comfortable with discharge home. she is on pantoprazole daily at max dose of 40mg. will add carafate. I have suspicion that her THC use plays a role in her presentation. reglan sent to pharmacy for nausea/vomiting. > she has appropriate follow up with her GI doctor with plan for upper/lower endoscopy in june. advised to keep this visit. Patient has remained stable throughout ED visit today. Discussed worrisome signs and symptoms and when to return to the ED. All questions answered at this time. Patient is agreeable with disposition and stable for discharge. Medical Decision Making Medical Decision Making MDM Narrative: 29 year old female with pmhx significant for colitis, elevated WBC count, and colitis presents to the ED today for evaluation of nausea and vomiting x4 days. Patient is hypertensive and tachycardic. Afebrile. She is generally well appearing and in NAD. Noted dry mucous membranes. obese abdomen, soft, mildly ttp to epigasgtric region with deep palpation. no rebound or guarding. active bs x4. Differential diagnosis includes anemia, electrolyte abnormality, dehydration, starvation ketosis, MICHELE, gastroenteritis, gastritis, GI bleed, colitis, diverticulitis, diverticulosis, cyclical vomiting, cannabinoid hyperemesis, GERD, Plan for labs, ekg, imaging, antiemetic, pain control, IVF, and re-evaluation. Differential Diagnosis Differential Diagnoses: The differential diagnosis associated with the presentation includes as above. Admission/Observation not indicated. Lab Data MDM Lab Attestation statement: I reviewed the patient's lab results. As above 05/06/25 14:29 05/06/25 14:29 Labs: Lab Results 05/06/25 05/06/25 05/06/25 Range/Units 10:37 11:45 14:09 WBC 24.2 H (4.8-10.8) X10*3/uL RBC 4.45 (4.20-5.50) X10*6/uL Hgb 12.7 (12.0-16.0) g/dl Hct 38.8 (37.0-47.0) % MCV 87.2 (80.0-98.0) fL MCH 28.5 (27.0-33.0) pg MCHC 32.7 (31.0-35.0) g/dl RDW 13.4 (11.0-16.0) % Plt Count 407 H D (160-400) X10*3/uL MPV 10.4 (9.4-12.3) fL Immature Gran % (Auto) 0.6 H (0.0-0.4) % Neut % (Auto) 91.4 H (45-73) % Lymph % (Auto) 4.2 L (20-40) % Hancock % (Auto) 3.6 (2-11) % Eos % (Auto) 0.0 (0-4) % Baso % (Auto) 0.2 (0-2) % Lymph # (Auto) 1.0 L (1.2-4.9) X10*3/uL Hancock # (Auto) 0.9 (0.1-1.2) X10*3/uL Eos # (Auto) 0.0 (0.0-0.4) X10*3/uL Baso # (Auto) 0.0 (0.0-0.2) X10*3/uL Abs Immat Gran (auto) 0.15 H (0.00-0.03) X10*3/uL Absolute Neuts (auto) 22.1 H (2.0-8.3) x10*3/uL Absolute Nucleated RBC 0.000 (0.0-0.012) X10*3/uL Nucleated RBC % (auto) 0.0 (0.0-0.2) /100WBC Smear Tech's Comments VERIFIED Sodium 140 (135-145) mmol/L Potassium 3.4 (3.3-5.1) mmol/L Chloride 103 (96-108) mmol/L Carbon Dioxide 14 L (22-29) mmol/L Anion Gap 26 H (12-20) BUN 18 H (9-16) mg/dL Creatinine 0.77 (0.5-1.4) mg/dL Estim Creat Clear Calc 123.2 Estimated GFR > 60 Random Glucose 190 H (60-115) mg/dL Lactic Acid 8.3 H* (0.5-2.0) mmol/L Lactic Acid F/U @ 2Hr (0.5-2.0) mmol/L Calcium 9.8 D (8.4-10.2) mg/dL Magnesium 2.2 (1.6-2.6) mg/dL Total Bilirubin 0.4 (0.0-1.0) mg/dL AST 38 H (5-31) U/L ALT 53 H (0-31) U/L Alkaline Phosphatase 80 (39-117) U/L Total Protein 8.5 H (6.5-8.0) g/dL Albumin 5.4 H (3.5-5.0) g/dL Lipase 8 (8-78) U/L Beta HCG, Quant < 2 mIU/mL Urine Color Yellow Urine Appearance Clear Urine pH 5.5 (5.0-9.0) Ur Specific Pendroy >= 1.030 H (1.005-1.025) Urine Protein Trace (Neg-Trace) mg/dL Urine Glucose (UA) Negative (Negative) mg/dL Urine Ketones Negative (Negative) mg/dL Urine Blood Negative (Negative) Urine Nitrite Negative (Negative) Ur Leukocyte Esterase Negative (Negative) 05/06/25 Range/Units 14:29 WBC 18.3 H (4.8-10.8) X10*3/uL RBC 3.86 L (4.20-5.50) X10*6/uL Hgb 11.0 L (12.0-16.0) g/dl Hct 33.3 L (37.0-47.0) % MCV 86.3 (80.0-98.0) fL MCH 28.5 (27.0-33.0) pg MCHC 33.0 (31.0-35.0) g/dl RDW 13.6 (11.0-16.0) % Plt Count 314 (160-400) X10*3/uL MPV 10.5 (9.4-12.3) fL Immature Gran % (Auto) 0.5 H (0.0-0.4) % Neut % (Auto) 88.8 H (45-73) % Lymph % (Auto) 6.6 L (20-40) % Hancock % (Auto) 3.9 (2-11) % Eos % (Auto) 0.1 (0-4) % Baso % (Auto) 0.1 (0-2) % Lymph # (Auto) 1.2 (1.2-4.9) X10*3/uL Hancock # (Auto) 0.7 (0.1-1.2) X10*3/uL Eos # (Auto) 0.0 (0.0-0.4) X10*3/uL Baso # (Auto) 0.0 (0.0-0.2) X10*3/uL Abs Immat Gran (auto) 0.10 H (0.00-0.03) X10*3/uL Absolute Neuts (auto) 16.3 H (2.0-8.3) x10*3/uL Absolute Nucleated RBC 0.000 (0.0-0.012) X10*3/uL Nucleated RBC % (auto) 0.0 (0.0-0.2) /100WBC Smear Tech's Comments Sodium 141 (135-145) mmol/L Potassium 3.7 (3.3-5.1) mmol/L Chloride 108 (96-108) mmol/L Carbon Dioxide 22 (22-29) mmol/L Anion Gap 15 (12-20) BUN 12 (9-16) mg/dL Creatinine 0.58 (0.5-1.4) mg/dL Estim Creat Clear Calc 163.5 Estimated GFR > 60 Random Glucose 126 H (60-115) mg/dL Lactic Acid (0.5-2.0) mmol/L Lactic Acid F/U @ 2Hr 2.5 H* (0.5-2.0) mmol/L Calcium 9.0 D (8.4-10.2) mg/dL Magnesium (1.6-2.6) mg/dL Total Bilirubin (0.0-1.0) mg/dL AST (5-31) U/L ALT (0-31) U/L Alkaline Phosphatase (39-117) U/L Total Protein (6.5-8.0) g/dL Albumin (3.5-5.0) g/dL Lipase (8-78) U/L Beta HCG, Quant mIU/mL Urine Color Urine Appearance Urine pH (5.0-9.0) Ur Specific Pendroy (1.005-1.025) Urine Protein (Neg-Trace) mg/dL Urine Glucose (UA) (Negative) mg/dL Urine Ketones (Negative) mg/dL Urine Blood (Negative) Urine Nitrite (Negative) Ur Leukocyte Esterase (Negative) Independent Interpretation I performed an independent interpretation of an: CT Scan Interpretation: CT A/P without bowel obstruction Radiology Impression Discussion of test interpretation with radiology: I have reviewed the radiologist's reading. Radiologist Impression: Procedure(s): CT abdomen pelvis w IV con Accession Number(s): [id number] cc: Physician,Unknown ; Erika Nunez~ Report Number: [id number]: Total DLP = 794.00 mGy-cm Reason for Exam: abd pain nv white count ?infection CLINICAL HISTORY: abd pain nv white count ?infection CT abdomen and pelvis with contrast Comparison: CT - CT ABDOMEN PELVIS W IV CON - 05/06/25 11:30 EDT Findings: No consolidation at the lung bases. Unremarkable gallbladder and bladder. Hepatic steatosis. The other solid organs are unremarkable. Small hiatal hernia. No bowel dilation. Increased submucosal fat in the distal small bowel and throughout the colon, unchanged. A normal appendix is identified. Normal vasculature. No lymphadenopathy. No ascites. No acute osseous abnormality. Impression: No acute findings. This document has been electronically signed by: Cecilia Alvarado MD on 05/06/2025 13:58:51 External Record Review External record reviewed: Inpatient record Prescription Management I considered prescription management with: Other (Carafate, Reglan) Social Determinants Patient?s care significantly limited by Social Determinants of Health including: Other Social Determinant of Health Medications Administered Discontinued Medications Generic Name Dose Route Start Last Admin Trade Name Freq PRN Reason Stop Dose Admin Diphenhydramine HCl 25 mg 05/06/25 10:45 05/06/25 10:58 Diphenhydramine Hcl 50 Mg/Ml Vial IVPUSH 05/06/25 10:46 25 mg ONCE ONE Administration Hydromorphone HCl 1 mg 05/06/25 11:29 05/06/25 11:52 Hydromorphone Hcl 1 Mg/Ml Syringe IVPUSH 05/06/25 11:30 1 mg ONCE ONE Administration Protocol Sodium Chloride 1,000 mls @ 999 mls/hr 05/06/25 10:45 05/06/25 12:24 Ns IV 05/06/25 11:45 Infused .Q1H1M ADELFO Infusion Magnesium Sulfate 2 gm in 50 mls @ 25 mls/hr 05/06/25 11:38 05/06/25 14:08 Magnesium Sulfate/H2o IV 05/06/25 13:37 Infused ONCE ONE Infusion Lactated Ringer's 1,000 mls @ 999 mls/hr 05/06/25 12:00 05/06/25 14:08 Lr IV 05/06/25 13:00 Infused .Q1H1M ADELFO Infusion Piperacillin Sod/Tazobactam 50 mls @ 100 mls/hr 05/06/25 12:34 05/06/25 13:32 Sod 3.375 gm/ Sodium Chloride IV 05/06/25 13:03 Infused ONCE ONE Infusion Iohexol 100 ml 05/06/25 11:45 05/06/25 11:45 Iohexol 350 Mg/Ml 100 Ml Infus..Btl IV 05/06/25 11:46 100 ml ONCE ONE Administration Metoclopramide HCl 10 mg 05/06/25 10:45 05/06/25 10:58 Metoclopramide Hcl 10 Mg/2 Ml Vial IVPUSH 05/06/25 10:46 10 mg ONCE ONE Administration Pantoprazole Sodium 40 mg 05/06/25 11:31 05/06/25 11:50 Pantoprazole Sodium 40 Mg/10 Ml Vial IVPUSH 05/06/25 11:32 40 mg ONCE ONE Administration Critical Care Time Critical Care Time Critical Care Time: Yes Total Critical Care Time: 40 Attestation: Critical care time in the amount of 40 minutes has been provided to the patient in terms of direct patient care, frequent reevaluation on IV dilaudid, review and interpretation of medical data and results, and management of potentially life-threatening conditions. This is all outside of any medical procedures. Discharge Plan Discharge Clinical Impression: Nausea & vomiting Patient Disposition: Home, Self-Care Instructions: Acute Nausea and Vomiting (ED) Additional Instructions: You were evaluated in the ED today for nausea, vomiting, and abdominal pain. Your work up today is reassuring. Your symptoms improved with medications today. You are able to tolerate food/drink without further episodes of vomiting. I am sending reglan to your pharmacy. You may take this as needed for nausea/vomiting. Continue your pantoprazole daily. I am sending carafate to your pharmacy. You may take this up to 3 times daily for abdominal discomfort. Please follow up with your PCP and GI specialist. Return with any new or worsening symptoms. In the case of an emergency call 911. Prescriptions: New sucralfate [Carafate] 1 gram tablet 1 g PO TID PRN (Reason: abdominal pain) Qty: 30 0RF metoclopramide HCl [Reglan] 5 mg tablet 10 mg PO Q6H PRN (Reason: nausea and vomiting) Qty: 20 0RF No Action sertraline 100 mg tablet 100 mg PO DAILY hydroxyzine HCl 50 mg tablet 50 mg PO BEDTIME amoxicillin-pot clavulanate 875-125 mg tablet 1 tab PO BID Qty: 13 0RF acetaminophen [Tylenol] 325 mg tablet 650 mg PO QID PRN (Reason: pain) Qty: 20 0RF Referrals: [facility] [Provider Group, Gastroenterology] Physician,Unknown J [Primary Care Provider, Medical] Interventions: ED Discharge Assessment Last Done: 05/06/25 16:59 Discharge Date/Time: 05/06/25 17:15 Print Language: Greenlandic
[2025-05-06 10:49] LABS: Hematocrit 38.8 % (37.0-47.0); Hemoglobin 12.7 g/dl (12.0-16.0); Imm Gran Abs Auto 0.15 X10*3/uL (0.00-0.03); Imm Gran Pct Auto 0.6 % (0.0-0.4); Lymphocytes Absolute Auto 1.0 X10*3/uL (1.2-4.9); MANUAL DIFF FLAG SCAN; Mean Corpuscular HGB Conc 32.7 g/dl (31.0-35.0); Mean Corpuscular Hemoglobin 28.5 pg (27.0-33.0); Mean Corpuscular Volume 87.2 fL (80.0-98.0); NRBC Abs Auto 0.000 X10*3/uL (0.0-0.012); NRBC Pct Auto 0.0 /100WBC (0.0-0.2); Platelet Count 407 X10*3/uL (160-400); Red Blood Count 4.45 X10*6/uL (4.20-5.50); SCAN SMEAR FLAG 1; White Blood Count 24.2 X10*3/uL (4.8-10.8)
--- OUTSIDE RECORDS SUMMARY | 2025-05-06 11:06 | XMS_ITS ---
02/08/2025 12:53:39 02/09/20 25 02/08/2025 HEMOG LOBIN A1C hemoglobin A1C 5.1 % <5.7 normal For the purpo se of cherie flowers for the prese nce of diabe steven: <5.7% Consi stent with the absen ce of diabe steven 5.7-6 .4% Consi stent with incre ased risk for diabe steven (pred iabet es) > or =6.5% Consi stent with diabe steven This assay resul t is consi stent with a decre ased risk of diabe steven. Curre ntly, no conse nsus exist s joya lópez use of hemog lobin A1c for diagn osis of diabe steven in child alli. Accor ding to Ameri can Diabe steven Assoc iatio n (ADA) guide lines , hemog lobin A1c <7.0% repre sents optim al contr ol in non-p regna nt diabe tic patie nts. Diffe rent metri cs may apply to speci fic patie nt popul ation s. Stand ards of Medic al Care in Diabe steven(A DA). NO COLLE CTION DATE RECEI CORAZON. WE HAVE USED THE DATE THE SPECI MEN WAS RECEI CORAZON BY THIS LABOR ATORY THE COLLE CTION DATE. IF THIS IS INCOR RECT, PLEAS E CONTA CT CLIEN T SERVI JUNE. PHONE NUMBE R: [phone] Not Available [facility] [address] , [place], [address], 02/08/2025 12:53:40 Result Notes None recorded. Problems Name Problem SNOMED Code Status Onset Date Resolution Date Notes Provider Name and Address Organization Details Recorded Time Mixed anxiety and depressive disorder 433968066 Active 2023 ARVIND DIAZ MD [address] [facility], [address], [place], [address] , [facility] 4 15:03:16 Irritable bowel syndrome 73850148 Active 2023 ARVIND DIAZ MD [address] [facility], [address], [place], [address], [facility] 4 15:03:50 Seasonal allergic rhinitis 771052291 Active 2023 ARVIND DIAZ MD [address] [facility], [address] [facility], [place], [address], [facility] 4 15:05:52 Recurrent sinusitis 546236070 Active 2023 ARVIND DIAZ MD [address] [facility], [address] [facility], [place], [address], [facility] 4 15:06:15 Allergic urticaria 97714267 Active 2023 MD Jolie [facility]EN [facility], [address] [facility], [place], [address], [facility] 4 15:06:29 Intestinal infection caused by Escherichia coli 469054240 Active 2023 ARVIND DIAZ MD [address] [facility], [address] [facility], [place], [address], [facility] 4 17:08:08 Insomnia 831729256 Active 2023 ARVIND DIAZ MD [address] [facility], [address] [facility], [place], [address], [facility] 5 19:01:22 Loose stool 357742975 Active 2023 MD Jolie BEARDEN [facility], [address] [facility], [place], [address], [facility] 4 14:35:27 Colitis 85553621 Active 2023 MD Jolie BEARDEN [facility], [address] [facility], [place], [address], [facility] 4 17:04:58 Acute urinary tract infection 312689490 Active 2023 MD Jolie BEARDEN [facility], [address] [facility], [place], [address], [place] [facility] 4 17:05:23 Fear of flying 175187454 Active 2024 ARVIND DIAZ MD [address] [facility], [address], [place], [address], [place] [facility] 5 19:04:01 Problem Notes None recorded. Medical Equipment None Reported. Allergies No known drug allergies Medications Name Sig Start Date Stop Date Status Note LastModified by Organization Details LastModified Time fluoxetine 40 mg capsule TAKE 1 CAPSULE BY MOUTH DAILY active Not Available Not Available No t Available acetaminoph en 325 mg tablet active Not Available Not Available Not Available trazodone 50 mg tablet TAKE 1 TABLET BY MOUTH EVERY DAY AT BEDTIME 2024 active Not Available Not Available Not Avai lable sertraline 100 mg tablet TAKE 1 TABLET BY MOUTH EVERY DAY DIRECTED 01/16 completed Not Available Not Available Not Available hydroxyzine HCl 50 mg tablet TAKE 1 TABLET BY MOUTH EVERY DAY AT BEDTIME 01/16 completed Not Available Not Available Not Available diazepam 2 mg tablet 1 TABLET BY MOUTH 30 MINUTES PRIOR TO BOARDING FLIGHT active Not Available Not Available No t Available pantoprazol e 40 mg tablet,ricardo yed release TAKE 1 TABLET BY MOUTH EVERY DAY active Not Available Not Available No t Available fluoxetine 20 mg tablet TAKE 1 TABLET BY MOUTH EVERY DAY 2024 active Not Available Not Available Not Avai lable hydroxyzine HCl 25 mg tablet TAKE 1 TABLET BY MOUTH AT BEDTIME NEEDED FOR INSOMNIA 03/18 completed Not Available Not Available Not Available ondansetron 4 mg disintegrat ing tablet DISSOLVE 1 TABLET ON THE TONGUE EVERY 6 HOURS FOR UP TO 15 DAYS NEEDED active Not Available Not Available No t Available sertraline 50 mg tablet Take 1 tablet every day by oral route. 02/15 completed Not Available Not Available Not Available dicyclomine 10 mg capsule TAKE 1 CAPSULE BY MOUTH THREE TIMES DAILY NEEDED FOR ABDOMINAL CRAMPS OR PAIN active Not Available Not Available No t Available amoxicillin 875 mg-potassiu m clavulanate 125 mg tablet active Not Available Not Available Not Available azithromyci n 500 mg tablet TAKE 1 TABLET BY MOUTH DAILY FOR 2 DAYS 02/02 completed Not Available Not Available Not Available Blisovi Fe 08/08 (28) 1 mg-20 mcg (21)/75 mg (7) tablet TAKE 1 TABLET BY MOUTH DAILY active Not Available Not Available No t Available Clenpiq 10 mg-3.5 gram-12 gram/175 mL oral solution DRINK 350 ML BY MOUTH DIRECTED active Not Available Not Available No t Available Vitals Date Recorded Body height Body mass index (BMI) Body weight Oxygen saturation Oxygen saturation in Arterial blood by Pulse oximetry Heart rate Systolic And Diastolic Provider Name and Address Organization Details Last Updated DateTime 5 160.02 cm 36.7 kg/m2 48905.6 2 g 98 % 98 % 79 /min 100/80 mm[Hg] Vish Davideparul [facility] 5 14:11:23 Date Recorded Body height Body mass index (BMI) Body weight Body temperature Respiratory rate Heart rate Oxygen saturation Oxygen saturation in Arterial blood by Pulse oximetry Heart rate Systolic And Diastolic Provider Name and Address Organization Details Last Updated DateTime 4 160.02 cm 35.1 kg/m2 37684.2 9 g 98.4 [degF] 15 /min 108 /min 98 % 98 % 108 /min 120/80 mm[Hg] ARVIND DIAZ MD [address], [address] [place] [address] 4 09:36:26 Date Recorded Body height Oxygen saturation Oxygen saturation in Arterial blood by Pulse oximetry Heart rate Respiratory rate Body temperature Body mass index (BMI) Body weight Systolic And Diastolic Provider Name and Address Organization Details Last Updated DateTime 4 160.02 cm 98 % 98 % 78 /min 15 /min 98.4 [degF] 35.8 kg/m2 53927.6 6 g 122/78 mm[Hg] ARVIND DIAZ MD [address], [address] [place] [address] 4 16:40:19 Social History Question Answer Notes LastModified by Organizat ion Details LastModified Time Tobacco Smoking Status Never Smoker Carmencita Mckeon [facility] 01/14/2024 14:24:17 Are You Blind Or Do You Have Difficulty Seeing? No [email or web address] Information not available 01/14/2024 Are You Deaf Or Do You Have Serious Difficulty Hearing? No [email or web address] Information not available 01/14/2024 What Type Of Diet Are You Following? REGULAR Information not available 01/14/2024 Which Illicit Or Recreational Drugs Have You Used? Edibles [email or web address] Information not available 01/14/2024 What Was The Date Of Your Most Recent Tobacco Screening? 06/17/2024 Information not available 06/17/2024 Do You Have Difficulty Walking Or Climbing Stairs? No [email or web address] Information not available 01/14/2024 Do You Have Any Dietary Restrictions? No [email or web address] Information not available 01/14/2024 Sex: Unknown Functional Status Question Answer Note LastModified by Organizat ion Details LastModified Time Do you use any illicit or recreational drugs? Yes Information not available 01/14/2024 Do you or have you ever used any other forms of tobacco or nicotine? No [email or web address] Information not available 01/14/2024 What is your level of alcohol consumption? Occasional [email or web address] Information not available 01/14/2024 Do you have transportation difficulties? No [email or web address] Information not available 01/14/2024 Are you able to walk independently without assistance or assistive devices? YESWOREST [email or web address] Information not available 01/14/2024 Do you have difficulty doing errands alone? No [email or web address] Information not available 01/14/2024 Are you able to care for yourself independently? Yes [email or web address] Information not available 01/14/2024 Do you have difficulty dressing, bathing, grooming, or toileting? No [email or web address] Information not available 01/14/2024 What is your exercise level? Occasional [email or web address] Information not available 01/14/2024 Mental Status Question Answer Note LastModified by Organization D etails LastModified Time Do you have difficulty concentrating, remembering or making decisions? No [email or web address] Information no t available 01/14/2024 Family History Relationship Description Onset Age of this Age Resolved Age Notes LastModified by Organization Details LastModified Time Father Heart disease Not available 2023 14:22:54 Mother Hypothyroidi sm [email or web address] Not available 2023 14:23:09 Medical History No medical history recorded. Gynecological HistoryNo gynecological history recorded. Obstetrics History GPAL:G 0 P 0 0 0 0 Past Encounters Encounter ID Performer Location Encounter Start Date Encounter Closed Date Diagnosis/Indication Diagnosis SNOMED-CT Code Diagnosis ICD10 Code Diagnosis IMO Codes Diagnosis Note [id number] ARVIND DIAZ MD [id number] ICE_11 [address] [place] [address] 01/14/2024 14:09:29 01/14/2024 15:19:00 Mixed anxiety and depressive disorder 615924128 F41.8 advised to start therapy, given online options as she travels to [place] for Grad school. Start zoloft, f/u 1mo Irritable bowel syndrome 01421355 K58.9 symptoms exacerbate d by acute stress/anx iety. check labs, start SSRI which may also help with GI symptoms. consider dicyclomin e pending f/u Seasonal a llergic rhinitis 919069258 J30.2 stable Allergic urticaria 25405 009 L50.0 stable Body mass index 30+ - obesity 061929493 Z68.34 d/e [id number] ARVIND DIAZ MD [id number] ICE_11 [address] [place] [address] 02/03/2024 16:43:18 02/08/2024 06:50:40 Intestinal infection caused by Escherichia coli 369460375 A04.4 Pt admitted to [facility] from 01/19-01/23 for severe N/V/D due to E.Coli infection. Treated with IV and PO abx, symptoms resolved and back to baseline. Appetite improved, staying well hydrated. Advised used of probiotics . Benign abdominal exam. Insomnia 142844201 F51.0 1 start low dose hydroxyzin e prn for sleep, 30min prior to bedtime and with 7hrs of time before waking up to minimize risk of sedation in AM. Mixed anxi ety and depressive disorder 207198508 F41.8 Pt restarted sertraline now at 50mg dose x 1 week. Has noted mild CARRILLO, appetite changes. has noted small improvemen t in overall depression /anxiety symptoms but still very anxious. She reports taking med as directed. Discussed possible med changes at next visit if symptoms do not resolve with time [id number] ARVIND DIAZ MD [id number] ICE_11 [address] [place] [address] 02/16/2024 09:28:03 02/18/2024 10:12:45 Mixed anxiety and depressive disorder 738432990 F41.8 showed some improvemen t on 50mg sertraline , but still experienci ng some depressive and anxiety symptoms. Will increase dosage to 100mg over 1 week (75mg x 1 week, then increase to 100mg). f/u via telehealth visit 1 mo Recurrent sinusitis 1956 [address] J32.9 mild symptoms today, almost fully resolved, supportive care reviewed. No abx indicted Insomnia 397538835 F51.0 1 discussed hydroxyzin e prn for sleep, may also help with nasal congestion , PND due to antihistam ine effect. [id number] ARVIND DIAZ MD [id number] ICE_11 [address] [place] [address] 03/18/2024 14:21:07 03/20/2024 20:28:34 Insomnia 927358551 F51.01 Still having difficulty sleeping, increase hydroxyzin e to 50mg qhs, f/u 1mo Mixed anxi ety and depressive disorder 513837927 F41.8 doing well on 100mg dose, symptoms controlled no side effects, continue regimen Loose stool 764316452 R1 9.5 stable overall but not back to baseline, advised probiotics , fiber supplement ation. No pain, weight loss. h/o recent gastro E.Coli infection, abx. [id number] ARVIND DIAZ MD [id number] ICE_11 [address] [place] [address] 06/17/2024 16:23:13 06/20/2024 19:16:37 Colitis 91963002 K52.9 s/p hospitaliz ation for colitis, symptoms improved with IV abx and fluids. Feeling better now but has long h/o intermitte nt GI upset, diarrhea dn IBS symptoms. Diet and lifestyle changes reviewed, f/u labs to assess for underlying IBD Acute urin olya tract infection 315032501 N39.0 dx upon hospitaliz ation, feeling well, f.u Ucx Insomnia 940823534 F51.0 1 stable on regimen, refills today [id number] ARVIND DIAZ MD [id number] ICE_11 [address] [place] [address] 01/16/2025 16:47:58 01/16/2025 17:45:36 Insomnia 925647440 G47.00 [id number] Recommende d by Psych who she will be following up with end of January. Sleep hygiene reviewed, do not take with hydroxyzin e Mixed anxi ety and depressive disorder 981798145 F41.8 sertraline d/c due to GI upset, trial of new medication . f/u with psych advised Fear of flying 256298749 F40.114 [id number] This report was requested by: Arvind Diaz Reference #: [id number] dvised to take 1 tab 30mins prior to boarding, prn. Safe use reviewed [id number] ARVIND DIAZ MD [id number] ICE_11 [address] [place] [address] 02/07/2025 13:44:16 02/07/2025 14:59:33 Active or passive immunization 986471670 Z23 up to date on vaccinatio ns. Insomnia 602607150 G47.0 0 [id number] Recommende d by Psych who she will be following up with end of January. Sleep hygiene reviewed, do not take with hydroxyzin e Colitis 65268683 K52.9 s/p hospitaliz ation for second episode of colitis. CT abdomen was done. endoscopy and colonoscop y was done. No finding other colitis was found. Pending biopsy results. Patient received IV fluids, IV antibiotic s. Feels well now. Continue PPI Seasonal a llergic rhinitis 391023034 J30.2 stable. Family his tory of Autoimmune disease 373527070 Z83.2 0865873 trend labs General ex amination of patient 737393449 Z00.01 [id number] Follows with OBGYN.[place] had pap smear, not sexually active Health Concerns Section Related Observation LastModified by Organization Detai ls LastModified Time None Recorded Concern Status LastModified by Organization Details LastModified Time None Recorded Advance Directives Directive None Recorded Payers Insurance Date Sequence Insurance Name Policy Number Policy Jasmine Covered Member ID Jasmine Member ID Guarantor Name 03/26/2025 1 [facility] - [place] - [employer] (PPO) NONE Ysabel Fermin [id number] Ysabel Fermin 01/14/2024 2 [employer] Ysabel Fermin [id number] Ysabel Fermin 05/25/2024 1 [employer] NONE Ysabel Fermin [id number] Ysabel Fermin 01/14/2024 1 [facility] - CIGNA - MULTIPLAN (PPO) Ysabel Fermin [id number] Ysabel Fermin Notes Date Note Type Note Provider Name and Address Organization Details Recorded Time 02/16/2024 text/html 28yo F here for care of anxiety/depression and insomnia. She reports mild dry mouth, intermittent GI symptoms (baseline for her IBS), but overall she is not crying like she was before, mood overall more stable., Still having insomnia but has not been taking hydroxyzine qhs due to sinus infection she had for past 2 wks which is almost cleared Yobany Capps, [address] [facility], [address] [address], [place], [address], [facility] 02/16/2024 16:04:51 03/18/2024 text/html 28yo f via telehealth visit for f/u of medication adjustment for depression/anxiety, insomnia. She reports doing well on 100mg sertraline, no side effects reported, mood more stable. Still having trouble sleeping, only taking 25mg hydroxyzine qhs. tolerated well but still having difficulty falling asleep. Yobany Capps DO [address] [facility], [address] [address], [place], [address], [facility] 03/18/2024 23:59:17 06/17/2024 text/html 28yo F here for hospital f/u visit. Pt was [place] hospital [place] of state ([place]) for acute abdominal pain, diarrhea. She was dx with colitis and UTI, treated with IVF and abx and d/c to home in stable condition. She states this is her 3rd bout of acute GI illness this year and is concerned there may be an underlying issue. Feeling better now, no N/V/D since d/c Yobany Capps DO [address] [facility], [address] [address], [place], [address], [facility] 06/20/2024 19:16:17 01/16/2025 text/html 29yo F via telehealth visit for management of depression/anxiety and insomnia. Seeing a therapist now 2x a week which is helpful. Was referred for Psych but f/u appointment isn't for another month, discussed sleep aids and wanted to review today. Flying soon and has anxiety with flights, discuss tx options. Having persistent GI issues (diarrhea, abdominal pain), seeing new GI, pending EGD/colonoscopy. s/p bw, given rx for stool studies ARVIND DIAZ MD [address] [facility], [address] [address], [place], [address], [facility] 01/16/2025 19:14:55 02/07/2025 text/html Annual WellnessReported by Patient 29 yo female with history of anxiety, depressive disorder presents ro clinic for annual physical. Patient was recently admitted in hospital for second episode of colitis. CT abdomen was done. endoscopy and colonoscopy was done. No finding other colitis was found. Pending biopsy results. Patient received IV fluids, IV antibiotics. Feels well now.patient sched. for first psych follow up. doing well on meds. ARVIND DIAZ MD [address] [facility], [address], [place], [address], [facility] 02/08/2025 09:41:38 OBGyn Episode No OBEpisode recorded. Data Portability Created on: May 06, 2025 Ysabel Fermin .[id number] : 1995 Sex: Female Author Organization [place] [facility] [id number] Address Ryan Mcnair [address] [address] Care Team Providers Care Trade Analyst Name Role Phone ARVIND DIAZ Primary Care Provider Assessment Encounter Date Assessment Date Assessment LastModified by Organization Details LastModified Time 01/16/2025 01/16/2025 Patient consented to the telehealth visit. Patient was in home at the time of the visit. Visit lasted 21 minutes Not available 01/16/2025 19:14:04 Plan of Treatment Reminders Order Date Submit Date Provider Last Modified By Organization Details Last Modified Time Details Appointments None recorded. Lab MARILYN (antinuclea r antibodies) screen, serum 2024 025 [facility], [facility] [place], [address], 5 12:53:39 rf (rheumatoid factor), serum 2024 025 [facility], [address] [place], [address], 5 12:53:38 CMP, serum or plasma 2024 025 [facility], [facility] [place], [address], 5 12:53:37 lipid panel, serum 2024 025 [facility], [facility] [place], [address], 5 12:53:35 HbA1c (hemoglobin A1c), blood 2024 025 [email or web address] [id number]_ 11, [address] [facility], [address], [place], [address], 5 12:53:40 urinalysis, dipstick 2023 [employer] [facility], [address] [facility], [place], [address], 11:04:13 culture, urine 2023 [employer] [facility], [address] [facility], [place], [address], 11:04:15 CBC w/ auto diff 2023 [employer] [facility], [address] [facility], [place], [address], 11:04:11 CMP, serum or plasma 2023 [employer] [facility], [address] [facility], [place], [address], 11:04:09 C-reactive protein, quantitativ e, serum or plasma 2023 [employer] [facility], [address] [place], [address], 11:04:14 erythrocyte sedimentati on rate by westergren method 2023 [employer] [facility], [address] [place], [address], 11:04:10 celiac disease comprehensi ve panel, serum 2023 [employer] [facility], [address] [place], [address], 11:04:14 inflammator y bowel disease Ab panel, serum 2023 024 [facility], [address] [place], [address], 4 11:04:09 Referral None recorded. Procedures None recorded. Surgeries None recorded. Imaging None recorded. Medication Orders pantoprazol e 40 mg tablet,ricardo yed release [email or web address] [facility], [address] [place], [place], [id number], 5 15:46:12 diazepam 2 mg tablet 2024 025 [facility] #89270, [address] [place], [place], [id number], 5 19:05:53 diazepam 2 mg tablet 2024 025 [facility] #21116, [address] [facility], [address] [place] [address], [id number], 5 19:07:56 trazodone 50 mg tablet 2024 025 [facility] #71923, [address] [facility], [address] [place] [address], [id number], 5 19:07:58 fluoxetine 20 mg tablet 2024 025 [facility] #91726, [address] [facility], [address] [place] [address], [id number], 5 19:07:57 hydroxyzine HCl 50 mg tablet 2023 025 [facility] #88611, [address] [place], [place], [id number], 5 19:01:52 hydroxyzine HCl 50 mg tablet 2023 024 [email or web address]83097, [address] [place], [place], [id number], 19:01:42 sertraline 100 mg tablet 2023 024 [email or web address] [facility] #67681, [address], [id number], 17:02:22 Patient TargetsNo targets recorded. Patient Instructions Encounter Date Encounter Id Patient Instructions Last Modified By Organization Details Last Modified Time 03/18/2024 [id number] Patient consente d to the telehealth visit. Patient was in home at the time of the visit. Visit lasted 10 minutes Not available 03/18/2024 14:42:03 Reason for Referral None Reported. Results Created Date Observation Date Name Description Value Unit Range Abnormal Flag Note LastModifiedBy Organization Detail LastModifiedTime 06/23/20 24 06/23/2024 COMPR EHENS JESUSITA METAB OLIC PANEL glucose 84 mg/dL 65-99 normal Fasti ng refer ence inter john Not Available [employer] [facility] [place], [address], 06/23/2024 11:04:09 06/23/20 24 06/23/2024 COMPR EHENS JESUSITA METAB OLIC PANEL urea nitrogen (BUN) 11 mg/dL 7-25 normal Not Available [facility] [place], [address], 06/23/2024 11:04:09 06/23/20 24 06/23/2024 COMPR EHENS JESUISTA METAB OLIC PANEL creatinine 0.54 mg/dL 0.50-0 .96 normal Not Available [facility] [place] [place], [address], 06/23/2024 11:04:09 06/23/20 24 06/23/2024 COMPR EHENS JESUSITA METAB OLIC PANEL eGFR 128 mL/mi n/1.7 3m2 > or = 60 normal Not Available [address] [place], [address], 06/23/2024 11:04:09 06/23/20 24 06/23/2024 COMPR EHENS JESUSITA METAB OLIC PANEL BUN/creatini ne ratio SEE NOTE: (calc ) 6-22 Not Repor helder: BUN and Creat inine are withi n refer ence range . Not Available [address] [place], [address], 06/23/2024 11:04:09 06/23/20 24 06/23/2024 COMPR EHENS JESUSITA METAB OLIC PANEL sodium 140 mmol/ L 135-14 6 normal Not Available [address] [place], [address], 06/23/2024 11:04:09 06/23/20 24 06/23/2024 COMPR EHENS JESUSITA METAB OLIC PANEL potassium 4.3 mmol/ L 3.5-5. 3 normal Not Available [address] [place], [address], 06/23/2024 11:04:09 06/23/20 24 06/23/2024 COMPR EHENS JESUSITA METAB OLIC PANEL chloride 105 mmol/ L 98-110 normal Not Available [address] [place], [address], 06/23/2024 11:04:09 06/23/20 24 06/23/2024 COMPR EHENS JESUSITA METAB OLIC PANEL carbon dioxide 26 mmol/ L 20-32 normal Not Available [employer] [address] [place], [address], 06/23/2024 11:04:09 06/23/20 24 06/23/2024 COMPR EHENS JESUSITA METAB OLIC PANEL calcium 9.9 mg/dL 8.6-10 .2 normal Not Available [employer] [address] [place], [address], 06/23/2024 11:04:09 06/23/20 24 06/23/2024 COMPR EHENS JESUSITA METAB OLIC PANEL protein, total 7.0 g/dL 6.1-8. 1 normal Not Available [address] [place], [address], 06/23/2024 11:04:09 06/23/20 24 06/23/2024 COMPR EHENS JESUSITA METAB OLIC PANEL albumin 4.5 g/dL 3.6-5. 1 normal Not Available [address] [place], [address], 06/23/2024 11:04:09 06/23/20 24 06/23/2024 COMPR EHENS JESUSITA METAB OLIC PANEL globulin 2.5 g/dL_ (calc ) 1.9-3. 7 normal Not Available [address] [place], [address], 06/23/2024 11:04:09 06/23/20 24 06/23/2024 COMPR EHENS JESUSITA METAB OLIC PANEL albumin/glob ulin ratio 1.8 (calc ) 1.0-2. 5 normal Not Available [address] [place], [address], 06/23/2024 11:04:09 06/23/20 24 06/23/2024 COMPR EHENS JESUSITA METAB OLIC PANEL bilirubin, total 0.2 mg/dL 0.2-1. 2 normal Not Available [facility] [address] [place], [address], 06/23/2024 11:04:09 06/23/20 24 06/23/2024 COMPR EHENS JESUSITA METAB OLIC PANEL alkaline phosphatase 81 U/L 31-125 normal Not Available [facility] [address] [place], [address], 06/23/2024 11:04:09 06/23/20 24 06/23/2024 COMPR EHENS JESUSITA METAB OLIC PANEL AST 25 U/L 10-30 normal Not Available [address] [place], [address], 06/23/2024 11:04:09 06/23/20 24 06/23/2024 COMPR EHENS JESUSITA METAB OLIC PANEL ALT 27 U/L 6-29 normal Not Available [address] [place], [address], 06/23/2024 11:04:09 06/23/20 24 06/23/2024 INFLA MMATO RY BOWEL DISEA SE DIFFE RENTI ATION PANEL anca screen Negati ve negati ve ANCA scree n uses indir ect immun ofluo resce nce to detec t antib odies to neutr ophil cytop lasmi c antig ens. A posit jesusita scree n refle xes to titer and patte rn. Patte rns inclu de cytop lasmi c (c-AN CA) and perin uclea r (p-AN CA) both of which are assoc iated with vascu litis , and atypi rosaura p-ANC A which is assoc iated with infla mmato ry bowel disea se and other disor ders. Not Available [address] [place], [address], 06/23/2024 11:04:09 06/23/20 24 06/23/2024 INFLA MMATO RY BOWEL DISEA SE DIFFE RENTI ATION PANEL myeloperoxid ase antibody <1.0 ai <1.0 Value Inter preta tion <1.0 AI: No Antib haroldo Detec helder >or=1 .0 AI: Antib haroldo Detec helder Autoa ntibo dies to myelo perox idase (MPO) are commo nly assoc iated with the follo wing small -vess el vascu litid es: micro scopi c polya ngiit is, polya rteri tis nodos a, [place] -Stra uss syndr ome, necro tizin g and cresc entic glome rulon ephri tis and occas ional ly granu lomat osis with polya ngiit is (Yvrose CARRIZALES er's) . The perin uclyordy wolf rn, (p-AN CA) is based large ly on autoa ntibo dy to myelo perox idase which serve s as the prima ry antig en. These autoa ntibo dies are prese nt in activ e disea se. Not Available [employer] [facility] [place], [address], 06/23/2024 11:04:09 06/23/20 24 06/23/2024 INFLA MMATO RY BOWEL DISEA SE DIFFE RENTI ATION PANEL proteinase-3 antibody <1.0 ai <1.0 Value Inter preta tion <1.0 AI: No Antib haroldo Detec helder >or=1 .0 AI: Antib haroldo Detec helder Autoa ntibo dies to prote inase -3 (CA-3 ) are accep helder as johanna cteri stic for granu lomat osis with polya ngiit is (Yvrose CARRIZALES er's) , and are detec table in 95% of the histo logic ally prove n cases . The cytop lasnatasha wolf rn, (c-AN CA), is based large ly on autoa ntibo dy to CA-3 which serve s as the prima ry antig en. These autoa ntibo dies are prese nt in activ e disea se. Not Available [employer] [facility] [place], [address], 06/23/2024 11:04:09 06/23/20 24 06/23/2024 INFLA MMATO RY BOWEL DISEA SE DIFFE RENTI ATION PANEL saccharomyce s cerevisiae Ab (asca) (IgG) 7.1 U <=20.0 Refer ence range (s): Negat jesusita: <=20. 0 Equiv ocal: 20.1 - 29.9 Posit jesusita: >=30. 0 Antib odies to Sacch aromy june cerev isiae are found in appro ximat lion 75% of patie nts with Crohn 's disea se, 15% of patie nts with ulcer ative colit is, and 5% of the healt hy popul ation . High antib haroldo titer s incre ase the likel ihood of disea se, espec ially Crohn 's disea se, and are assoc iated with more aggre ssive disea se. As the infla mmati on in Crohn 's disea se is focus ed at the gut mucos a, most patie nts have IgA antib odies to S cerev isiae and half of these also have IgG antib odies . A minor ity of patie nts have only IgG antib odies to S cerev isiae . Not Available [employer] [facility] [address] [place], [address], 06/23/2024 11:04:09 06/23/20 24 06/23/2024 INFLA MMATO RY BOWEL DISEA SE DIFFE RENTI ATION PANEL saccharomyce s cerevisiae Ab (asca) (IgA) 4.2 U <=20.0 Refer ence range (s): Negat jesusita : <=20. 0 Equiv ocal: 20.1 - 24.9 Posit jesusita: >=25. 0 Antib odies to Sacch aromy june cerev isiae are found in appro ximat lion 75% of patie nts with Crohn 's disea se, 15% of patie nts with ulcer ative colit is, and 5% of the healt hy popul ation . High antib haroldo titer s incre ase the likel ihood of disea se, espec ially Crohn 's disea se, and are assoc iated with more aggre ssive disea se. As the infla mmati on in Crohn 's disea se is focus ed at the gut mucos a, most patie nts have IgA antib odies to S cerev isiae and half of these also have IgG antib odies . A minor ity of patie nts have only IgG antib odies to S cerev isiae . Not Available [employer] [address] [place], [address], 06/23/2024 11:04:09 06/23/20 24 06/23/2024 SED RATE BY MODIF IED WESTE RGREN sed rate by modified westergren 9 mm/h < or = 20 normal No colle ction date and/o r time was provi ded. If colle ction time excee ds 24 hours until testi ng, evalu ate resul t with cauti on. It is recom nba d that sampl e be recol lecte d, with date and time appro eunice mannum ented . Not Available [employer] [address] [place], [address], 06/23/2024 11:04:10 06/23/20 24 06/23/2024 CBC (INCL UDES DIFF/ PLT) white blood cell count 7.0 thous and/u L 3.8-10 .8 normal Not Available [employer] [address] [place], [address], 06/23/2024 11:04:11 06/23/20 24 06/23/2024 CBC (INCL UDES DIFF/ PLT) red blood cell count 4.33 he on/uL 3.80-5 .10 normal Not Available [employer] [address] [place], [address], 06/23/2024 11:04:11 06/23/20 24 06/23/2024 CBC (INCL UDES DIFF/ PLT) hemoglobin 12.6 g/dL 11.7-1 5.5 normal Not Available [employer] [address] [place], [address], 06/23/2024 11:04:11 06/23/20 24 06/23/2024 CBC (INCL UDES DIFF/ PLT) hematocrit 38.3 % 35.0-4 5.0 normal Not Available [facility] [address] [place], [address], 06/23/2024 11:04:11 06/23/20 24 06/23/2024 CBC (INCL UDES DIFF/ PLT) MCV 88.5 fL 80.0-1 00.0 normal Not Available [address] [place], [address], 06/23/2024 11:04:11 06/23/20 24 06/23/2024 CBC (INCL UDES DIFF/ PLT) MCH 29.1 pg 27.0-3 3.0 normal Not Available [address] [place], [address], 06/23/2024 11:04:11 06/23/20 24 06/23/2024 CBC (INCL UDES DIFF/ PLT) MCHC 32.9 g/dL 32.0-3 6.0 normal For adult s, a sligh t decre ase in the calcu lated MCHC value (in the range of 30 to 32 g/dL) is most likel y not clini john signi fican t; howev er, it shoul d be inter prete d with cauti on in [facility] with other red cell adis eters and the patie nt's clini rosaura condi tion. Not Available [address] [place], [address], 06/23/2024 11:04:11 06/23/20 24 06/23/2024 CBC (INCL UDES DIFF/ PLT) RDW 12.7 % 11.0-1 5.0 normal Not Available [address] [place], [address], 06/23/2024 11:04:11 06/23/20 24 06/23/2024 CBC (INCL UDES DIFF/ PLT) platelet count 314 thous and/u L 140-40 0 normal Not Available [employer] [address] [place], [address], 06/23/2024 11:04:11 06/23/20 24 06/23/2024 CBC (INCL UDES DIFF/ PLT) MPV 11.4 fL 7.5-12 .5 normal Not Available [employer] [address] [place], [address], 06/23/2024 11:04:11 06/23/20 24 06/23/2024 CBC (INCL UDES DIFF/ PLT) absolute neutrophils 4375 cells /uL 1500-7 800 normal Not Available [address] [place], [address], 06/23/2024 11:04:11 06/23/20 24 06/23/2024 CBC (INCL UDES DIFF/ PLT) absolute lymphocytes 1792 cells /uL 850-39 00 normal Not Available [facility] [address] [place], [address], 06/23/2024 11:04:11 06/23/20 24 06/23/2024 CBC (INCL UDES DIFF/ PLT) absolute monocytes 672 cells /uL 200-95 0 normal Not Available [address] [place], [address], 06/23/2024 11:04:11 06/23/20 24 06/23/2024 CBC (INCL UDES DIFF/ PLT) absolute eosinophils 133 cells /uL 15-500 normal Not Available [address] [place], [address], 06/23/2024 11:04:11 06/23/20 24 06/23/2024 CBC (INCL UDES DIFF/ PLT) absolute basophils 28 cells /uL 0-200 normal Not Available [address] [place], [address], 06/23/2024 11:04:11 06/23/20 24 06/23/2024 CBC (INCL UDES DIFF/ PLT) neutrophils 62.5 % 38-80 normal Not Available [address] [place], [address], 06/23/2024 11:04:11 06/23/20 24 06/23/2024 CBC (INCL UDES DIFF/ PLT) lymphocytes 25.6 % 15-49 normal Not Available [facility] [address] [place], [address], 06/23/2024 11:04:11 06/23/20 24 06/23/2024 CBC (INCL UDES DIFF/ PLT) monocytes 9.6 % 0-13 normal Not Available [facility] - [address] [place], [address], 06/23/2024 11:04:11 06/23/20 24 06/23/2024 CBC (INCL UDES DIFF/ PLT) eosinophils 1.9 % 0-8 normal Not Available [facility] [address] [place], [address], 06/23/2024 11:04:11 06/23/20 24 06/23/2024 CBC (INCL UDES DIFF/ PLT) basophils 0.4 % 0-2 normal Not Available [facility] [address] [place], [address], 06/23/2024 11:04:11 06/23/20 24 06/23/2024 URINA LYSIS MACRO SCOPI C color YELLOW yellow normal Not Available [facility] [address] [place], [address], 06/23/2024 11:04:13 06/23/20 24 06/23/2024 URINA LYSIS MACRO SCOPI C appearance CLEAR clear normal Not Available [facility] [address] [place], [address], 06/23/2024 11:04:13 06/23/20 24 06/23/2024 URINA LYSIS MACRO SCOPI C specific gravity 1.023 1.001- 1.035 normal Not Available [facility] [address] [place], [address], 06/23/2024 11:04:13 06/23/20 24 06/23/2024 URINA LYSIS MACRO SCOPI C pH 6.0 5.0-8. 0 normal Not Available [facility] [address] [place], [address], 06/23/2024 11:04:13 06/23/20 24 06/23/2024 URINA LYSIS MACRO SCOPI C glucose NEGATI VE negati ve normal Not Available [facility] - [address] [place], [address], 06/23/2024 11:04:13 06/23/20 24 06/23/2024 URINA LYSIS MACRO SCOPI C bilirubin NEGATI VE negati ve normal Not Available [facility] - [address] [place], [address], 06/23/2024 11:04:13 06/23/20 24 06/23/2024 URINA LYSIS MACRO SCOPI C ketones NEGATI VE negati ve normal Not Available [facility] - [address] [place], [address], 06/23/2024 11:04:13 06/23/20 24 06/23/2024 URINA LYSIS MACRO SCOPI C occult blood NEGATI VE negati ve normal Not Available [facility] - [address] [place], [address], 06/23/2024 11:04:13 06/23/20 24 06/23/2024 URINA LYSIS MACRO SCOPI C protein NEGATI VE negati ve normal Not Available [facility] - [address] [place], [address], 06/23/2024 11:04:13 06/23/20 24 06/23/2024 URINA LYSIS MACRO SCOPI C nitrite NEGATI VE negati ve normal Not Available [facility] - [address] [place], [address], 06/23/2024 11:04:13 06/23/20 24 06/23/2024 URINA LYSIS MACRO SCOPI C leukocyte esterase NEGATI VE negati ve normal Not Available [facility] - [address] [place], [address], 06/23/2024 11:04:13 06/23/20 24 06/23/2024 JOANNA C DISEA SE COMPR EHENS JESUSITA PANEL interpretati on No serol ogica l evide nce of joanna c disea se. tTG IgA may carlos lize in indiv idual s with joanna c disea se who maint ain a glute n-lorenzo e diet. Consi mora HLA DQ2 and DQ8 testi ng to rule out joanna c disea se. Joanna c disea se is extre eris rare in the absen ce of DQ2 or DQ8. Not Available [facility] - [address] [place], [address], 06/23/2024 11:04:14 06/23/20 24 06/23/2024 JOANNA C DISEA SE COMPR EHENS JESUSITA PANEL tissue transglutami nase Ab, IgA <1.0 U/mL normal Value Inter preta tion ----- ----- ----- ---- <15.0 Antib haroldo not detec helder > or = 15.0 Antib haroldo detec helder Not Available [facility] [address] [place], [address], 06/23/2024 11:04:14 06/23/20 24 06/23/2024 JOANNA C DISEA SE COMPR EHENS JESUSITA PANEL immunoglobul in A 227 mg/dL 47-310 normal Not Available [facility] [address] [place], [address], 06/23/2024 11:04:14 06/23/20 24 06/23/2024 C-SANJUANA CTIVE PROTE IN C-reactive protein <3.0 mg/L <8.0 normal Not Available [employer] [address] [place], [address], 06/23/2024 11:04:14 06/23/20 24 06/23/2024 CULTU RE, URINE , ROUTI NE culture, urine, routine SEE NOTE abnormal CULTU RE, URINE , ROUTI NE Micro Numbe r: [id number] Test Statu s: Final Speci men Sourc e: Not given Speci men Quali ty: Adequ ate Resul t: 10,00 0-49, 000 CFU/m L of Group B Strep tococ cus isola helder Any amoun t of group B Strep tococ cus in urine speci mens obtai damien from pregn ant femal es is a marke r of genit al tract colon izati on. If this patie nt is pregn ant, pleas e refer to ACOG guide lines for appro priat e scree kristie and manag ement of pregn ant women . Beta- hemol ytic strep tococ ci are predi ctabl y susce ptibl e to Penic illin and other beta- lacta ms. Susce ptibi lity testi ng not routi jesus perfo rmed. Pleas e conta ct the labor atory withi n 3 days if susce ptibi lity testi ng is emiliano ed. Comme nt: A porti on of the resul ts were perfo rmed at [facility]. NO COLLE CTION DATE RECEI CORAZON. WE HAVE USED THE DATE THE SPECI MEN WAS RECEI CORAZON BY THIS LABOR ATORY THE COLLE CTION DATE. IF THIS IS INCOR RECT, PLEAS E CONTA CT CLIEN T SERVI JUNE. PHONE NUMBE R: [phone] Not Available [employer] [facility] [place], [address], 06/23/2024 11:04:15 02/09/20 25 02/08/2025 LIPID PANEL , STAND CHEMA cholesterol, total 162 mg/dL <200 normal Not Available [employer] [facility] [place], [address], 02/08/2025 12:53:35 02/09/20 25 02/08/2025 LIPID PANEL , STAND CHEMA HDL cholesterol 53 mg/dL > or = 50 normal Not Available [employer] [facility] [place], [address], 02/08/2025 12:53:35 02/09/20 25 02/08/2025 LIPID PANEL , STAND CHEMA triglyceride s 90 mg/dL <150 normal Not Available [employer] [facility] [place], [address], 02/08/2025 12:53:35 02/09/20 25 02/08/2025 LIPID PANEL , STAND CHEMA LDL-choleste rol 91 mg/dL _(rosaura c) normal Refer ence range : <100 Emiliano able range <100 mg/dL for prima ry preve ntion ; <70 mg/dL for patie nts with CHD or diabe tic patie nts with > or = 2 CHD risk facto rs. LDL-C is now calcu lated using the Michelle n-Hop kins calcu latio n, which is a valid ated novel metho d provi maribel latisha r accur acy than the Fried serafin equat ion in the estim ation of LDL-C . Michelle ramos SS et al. STAN. 2013; 310(1 9): 2061- 2068 (http ://ed ucati on.QuikCycle. NJVC/f aq/FA Q164) Not Available [employer] [facility] [place], [address], 02/08/2025 12:53:35 02/09/20 25 02/08/2025 LIPID PANEL , STAND CHEMA chol/HDLC ratio 3.1 (calc ) <5.0 normal Not Available [employer] [facility] [place], [address], 02/08/2025 12:53:35 02/09/20 25 02/08/2025 LIPID PANEL , STAND CHEMA non HDL cholesterol 109 mg/dL _(rosaura c) <130 normal For patie nts with diabe steven plus 1 major ASCVD risk facto r, treat ing to a non-H DL-C goal of <100 mg/dL (LDL- C of <70 mg/dL ) is consi coreyd a thera penegrito c optio n. Not Available [employer] [facility] [place], [address], 02/08/2025 12:53:35 02/09/20 25 02/08/2025 COMPR EHENS JESUSITA METAB OLIC PANEL glucose 107 mg/dL 65-99 high Fasti ng refer ence inter john For someo ne witho ut known diabe steven, a gluco se value betwe en 100 and 125 mg/dL is consi stent with predi abete s and shoul d be confi rmed with a follo w-up test. Not Available [employer] [address] [place], [address], 02/08/2025 12:53:37 02/09/20 25 02/08/2025 COMPR EHENS JESUSITA METAB OLIC PANEL urea nitrogen (BUN) 7 mg/dL 7-25 normal Not Available [address] [place], [address], 02/08/2025 12:53:37 02/09/20 25 02/08/2025 COMPR EHENS JESUSITA METAB OLIC PANEL creatinine 0.51 mg/dL 0.50-0 .[address] Not [address] [facility] [address] [place], [address], 02/08/2025 12:53:37 02/09/20 25 02/08/2025 COMPR EHENS JESUSITA METAB OLIC PANEL eGFR 129 mL/mi n/1.7 3m2 > or = [address] [facility] [address] [place], [address], 02/08/2025 12:53:37 02/09/20 25 02/08/2025 COMPR EHENS JESUSITA METAB OLIC PANEL BUN/creatini ne ratio SEE NOTE: (calc ) 6-22 Not Repor helder: BUN and Creat inine are withi n refer ence range . Not Available [employer] [address] [place], [address], 02/08/2025 12:53:37 02/09/20 25 02/08/2025 COMPR EHENS JESUSITA METAB OLIC PANEL sodium 139 mmol/ L 135-14 6 normal Not Available [employer] [address] [place], [address], 02/08/2025 12:53:37 02/09/20 25 02/08/2025 COMPR EHENS JESUSITA METAB OLIC PANEL potassium 4.2 mmol/ L 3.5-5. 3 normal Not Available [address] [place], [address], 02/08/2025 12:53:37 02/09/20 25 02/08/2025 COMPR EHENS JESUSITA METAB OLIC PANEL chloride 107 mmol/ L 98-110 normal Not Available [address] [place], [address], 02/08/2025 12:53:37 02/09/20 25 02/08/2025 COMPR EHENS JESUSITA METAB OLIC PANEL carbon dioxide 26 mmol/ L 20-32 normal Not Available [address] [place], [address], 02/08/2025 12:53:37 02/09/20 25 02/08/2025 COMPR EHENS JESUSITA METAB OLIC PANEL calcium 9.2 mg/dL 8.6-10 .2 normal Not Available [address] [place], [address], 02/08/2025 12:53:37 02/09/20 25 02/08/2025 COMPR EHENS JESUSITA METAB OLIC PANEL protein, total 6.9 g/dL 6.1-8. 1 normal Not Available [address] [place], [address], 02/08/2025 12:53:37 02/09/20 25 02/08/2025 COMPR EHENS JESUSITA METAB OLIC PANEL albumin 4.5 g/dL 3.6-5. 1 normal Not Available [address] [place], [address], 02/08/2025 12:53:37 02/09/20 25 02/08/2025 COMPR EHENS JESUSITA METAB OLIC PANEL globulin 2.4 g/dL_ (calc ) 1.9-3. [address] [facility] [address] [place], [address], 02/08/2025 12:53:37 02/09/20 25 02/08/2025 COMPR EHENS JESUSITA METAB OLIC PANEL albumin/glob ulin ratio 1.9 (calc ) 1.0-2. 5 normal Not Available [address] [place], [address], 02/08/2025 12:53:37 02/09/20 25 02/08/2025 COMPR EHENS JESUSITA METAB OLIC PANEL bilirubin, total 0.2 mg/dL 0.2-1. 2 normal Not Available [address] [place], [address], 02/08/2025 12:53:37 02/09/20 25 02/08/2025 COMPR EHENS JESUSITA METAB OLIC PANEL alkaline phosphatase 50 U/L 31-125 normal Not Available [facility] [address] [place], [address], 02/08/2025 12:53:37 02/09/20 25 02/08/2025 COMPR EHENS JESUSITA METAB OLIC PANEL AST 21 U/L 10-[address] [facility] [address] [place], [address], 02/08/2025 12:53:37 02/09/20 25 02/08/2025 COMPR EHENS JESUSITA METAB OLIC PANEL ALT 26 U/L 6-29 normal Not Available [employer] [address] [place], [address], 02/08/2025 12:53:37 02/09/20 25 02/08/2025 RHEUM ATOID FACTO R rheumatoid factor <10 IU/mL <14 [address] Not [address] [facility] [address] [place], [address], 02/08/2025 12:53:38 07/02/08/2025 MARILYN MULTI PLEX W/REF FLAKO 11 AB CASCA DE MARILYN screen, immunoassay NEGATI VE negati ve normal A negat jesusita MARILYN Multi plex indic ates the absen ce of detec table antib odies to compo nent charly steven consi sting of doubl e stran ded DNA (dsDN A), chrom atin, ribon ucleo prote in (TRESTLE MECHANIC) , [place] /TRESTLE MECHANIC (Sm/R TANKAGE GRINDER), [place] (Sm), SS-A, SS-B, Sarah-1, centr omere B, Scl-7 0 and ribos omal P. A negat jesusita resul t shoul d be inter prete d in the kristopher xt of the clini rosaura and labor atory findi ngs and does not rule out autoi mmune disea se johanna cteri zed by other autoa ntibo dy speci ficit ies such as rheum atoid arthr itis, autoi mmune hepat itis, prima ry bilia ry cirrh osis, autoi mmune thyro iditi s, Mantoloking on's disea se, perni cious anemi a, autoi mmune neuro pathi es, vascu litis , joanna c disea se, and bullo us disea se. For addit ional infor roberto dee e refer to http: //sumanth spencerQue stDia gnost ics.c om/fa q/FAQ 177 (This link is being provi ded for infor ruel josé/ adarsh yeung purpo ses only. ) Not Available [facility] [facility] [address] [place], [address], Ph
--- OUTSIDE RECORDS SUMMARY | 2025-05-06 11:06 | XMS_ITS | Clinical Summary ---
Author Organization Formerly [facility] Address [address] [place] [address] Phone Care Team Providers Care User Experience Developer Name Role Phone Pcp, Unknown Primary Care Provider Unavailabl e Allergies No known active allergies Medications sertraline (ZOLOFT) 100 MG tablet Take 100 mg by mouth daily. Active hydrOXYzine (ATARAX) 50 MG tablet Take 50 mg by mouth nightly at bedtime as needed for itching. Active Social History Tobacco Use Types Packs/Day Years Used Date Smoking Tobacco: Never Smokeless Tobacco: Never Tobacco Cessation:Counseling Given: Not Answered Alcohol Use Standard Drinks/Week Comments Yes 0 (1 standard drink = 0.6 oz pur e alcohol) Education Answer Date Recorded Are you interested in more education? Not on rene e 06/03/2024 Are you concerned about learning? Not on file 06/03/2024 No 06/03/2024 No 06/03/2024 Digital Access Answer Date Recorded No 06/03/2024 No 06/03/2024 Reliable internet access at home? Not on file 06/03/2024 Device with a working camera? Not on file Intimate Partner Violence Answer Date R ecorded Are you denied basic needs s uch as food, clothing, or medical care? No 06/03/2024 In the past 12 months have y ou been in a relationship with a person who hurts, threatens, or tries to control you? No 06/03/2024 Are you denied basic needs s uch as food, clothing, or medical care? No 06/03/2024 In the past 12 months have y ou been in a relationship with a person who hurts, threatens, or tries to control you? No 06/03/2024 Comments Unknown Sex and Gender Information Value Date Recorded Sex Assigned at Female 06/03/2024 6:10 PM EST Legal Sex Female 4:22 PM EST Gender Identity Female 06/03/2024 6:10 PM EST Sexual Orientation Straight 06/03/2024 6: 10 PM EST Last Filed Vital Signs Vital Sign Reading Time Taken Comments Blood Pressure 144/86 06/03/2024 11:38 PM EST Pulse 98 06/03/2024 11:38 PM EST Temperature 36.7 C (98.1 F) 06/03/2024 11:38 PM EST Respiratory Rate 18 06/03/2024 11:38 PM EST Oxygen Saturation 99% 06/03/2024 11:38 PM EST Inhaled Oxygen Concentration - - Weight 89.9 kg (198 lb 3.1 oz) 06/03/2024 5:10 P M EST Height - - Body Mass Index - - Plan of Treatment Health Maintenance Due Date Last Done Comments Adult Td,Tdap Booster 1994 DEPRESSION SCREENING 2006 HEPATITIS C SCREENING 2012 HIV ONE-TIME SCREENING (18-6 5 YEARS) 2012 PAP SMEAR 2015 INFLUENZA VACCINE (#1) 2025 COVID-19 VACCINE (2024-2 6 season) 2025 SMOKING STATUS SCREENING (On ce After 26 Yrs) Completed 06/03/2024 HEPATITIS A VACCINES Aged Out No long er eligible based on patient's age to complete this topic HIB VACCINES Aged Out No longer eligi ble based on patient's age to complete this topic MENINGOCOCCAL VACCINES (ACWY) Aged Out No longer eligible based on patient's age to complete this topic MENINGOCOCCAL VACCINES (B) Aged Out N o longer eligible based on patient's age to complete this topic PNEUMOCOCCAL VACCINES (0-49 years) Aged Out No longer eligible based on patient's age to complete this topic Medical Devices Not on file Insurance [employer] Care Teams User Experience Developer Relationship Specialty Start Date End Date Pcp, Unknown PCP - General 06/03/24 Additional Source Comments The information contained in this document represents components of the legal health record. It is not the complete legal health record.[facility]
--- OUTSIDE RECORDS SUMMARY | 2025-05-06 11:06 | XMS_ITS | Clinical Summary ---
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 2 Injection Pen 02/22/2018 Active traZODone (DESYREL) 100 mg tablet Take 50 mg by mouth nightly. Active FLUoxetine (PROZAC) 20 mg capsule Take 20 mg by mouth daily. 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 Encounters Date Type Department Care Team Description 02/22/2025 Telephone [facility] Polishing Machine Tender [address] [place] [address] Kim Petty PA from Last 3 Months Immunizations Immunization Administration Dates Next Due Covid-19 Vaccine, Moderna 12/06/2020,11/02/2020 INFLUENZA VACCINE >/=6 MONTH S, QUADRIVALENT, PRESERVATIVE FREE 04/18/2021,06/17/2019 Influenza Vaccine >/=6 Month s, Quadrivalent, Preservative Free, IM 07/20/2015 Tdap 04/15/2019 Family History Medical History Relation Name Comments Arthritis Father Glaucoma Father Heart Disease Father High Cholesterol Father Peripheral Vascular Disease Father Heart Disease Maternal Grandfather Kidney Disease Maternal Grandfather Hypothyroidism Mother Heart Disease Paternal Grandfather Relation Name Status Comments Brother Alive Father Alive CAD, high nai sterol, glaucoma, PVds, arthritis of spine Maternal Grandfather (Age 83) CA D, kidney disease Mother Alive Hypothyroid Paternal Grandfather (Age 82) CA D Social History Tobacco Use Types Packs/Day Years Used Date Smoking Tobacco: Never Smokeless Tobacco: Never Alcohol Use Standard Drinks/Week Comments Yes 0 (1 standard drink = 0.6 oz pur e alcohol) socially Interpersonal Safety Answer Date Record ed Feels Unsafe at Home or Work/School no 01/24/2025 Feels Threatened by Someone no 02/2025 Does Anyone Try to Keep You From Having Contact with Others or Doing Things Outside Your Home? no 01/24/2025 Has anyone hit you in the fa ce or head, made you fall and hit your head, shaken you or tried to strangle or choke you? no 01/24/2025 Physical Signs of Abuse Present no 01/24/2025 Description of findings Not on file 01/25/20 Interpersonal Safety Answer Date Record ed Time/Place feel unsafe Not on file Signs of physical abuse/neglect Not on file 01/20/2024 Signs of sexual abuse Not on file 01/20/2024 Has anyone hit you in the fa ce or head, made you fall and hit your head, shaken you or tried to strangle or choke you? no 01/20/2024 Signs and symptoms of sexual abuse Not on file 01/20/2024 Comments Unknown Sex and Gender Information Value Date Recorded Sex Assigned at Not on file Legal Sex Female 2:27 PM EDT Gender Identity Not on file Sexual Orientation Not on file Occupation Industry Job Start Date Job End Date Student Not on file Not on file Not on file Last Filed Vital Signs Vital Sign Reading Time Taken Comments Blood Pressure 113/74 01/29/2025 5:32 AM EDT Pulse 96 01/29/2025 5:32 AM EDT Temperature 36.7 C (98.1 F) 01/29/2025 5:32 AM EDT Respiratory Rate 18 01/29/2025 5:32 AM EDT Oxygen Saturation 100% 01/29/2025 5:32 AM EDT Inhaled Oxygen Concentration - - Weight 95.3 kg (210 lb) 01/23/2025 9:00 PM EDT Height 160 cm (5' 3 ) 01/23/2025 9:00 PM EDT Body Mass Index 37.2 01/23/2025 9:00 PM EDT Plan of Treatment Health Maintenance Due Date Last Done Comments -64 Q3 Years 1994 30-65 With HPV Q5 Years 1994 Cervical Cancer Screening 1994 HIV Screening 2007 Hepatitis C Screening 2012 Annual Physical Examination 04/18/202203/22, 04/15/2019, 01/14/2018 Covid-19 Vaccine (2024-2 6 season) 2025 12/06/2020, 11/02/2020 Influenza Vaccination (#1) 03/20/202504/18, 06/17/2019, 07/20/2015 Tetanus Vaccination 04/15/2029 04/15/2019, 06/01/2018 (Postponed) Insurance [employer] [facility] Advance Directives For more information, please contact: [phone] * CPR (Latest Code Status on File) Date Activated Date Inactivated Comments 01/23/2025 4:36 PM 01/29/2025 12:47 PM Question Answer Comments MOLST status: There is no MOLST * CPR Date Activated Date Inactivated Comments 01/21/2024 2:41 AM 01/24/2024 2:06 PM Question Answer Comments MOLST status: There is no MOLST Care Teams Wine Master Relationship Specialty Start Date End Date Mark Ambrose MD [address] [facility] [address] [place] [address] PCP - General Medicine, Internal Medicine 11/23/17
--- OUTSIDE RECORDS SUMMARY | 2025-05-06 11:06 | XMS_ITS | Encounter Summary ---
Author Organization [facility] Address [address] [place] [address] Phone Care Team Providers Care Dinkey Locomotive Operator Name Role Phone Pcp, Unknown Primary Care Provider Unavailabl e Encounter Details Date Type Department Care Team (Late st Contact Info) Description 06/03/2024 Procedure Pass [facility], Ct Scan - [address] [address] Social History Tobacco Use Types Packs/Day Years [...] Orientation Straight 06/03/2024 6: 10 PM EST documented as of this encounter Functional Status * Calculated C-SSRS Risk Score (Lifetime/Recent) Answer Date of Assessment Author No Risk Indicated 06/03/2024 5:10 PM EST Jaylyn Santiago, DARIA * [place] Suicide Severity Rating Scale (Screener/Recent Self-Report) Question Answer Date of Assessment Author 1. Wish to be (Past 1 Month) No 024 5:10 PM Jaylyn Campa, DARIA 2. Non-Specific Active Suici t[place] Thoughts (Past 1 Month) No 06/03/2024 5:10 PM aJylyn Campa, DARIA 6. Suicidal Behavior (Lifetime) No 4 5:10 PM Jaylyn Campa, DARIA documented as of this encounter Plan of Treatment Not on file documented as of this encounter Visit Diagnoses Not on filedocumented in this encounter Care Teams Dinkey Locomotive Operator Relationship Specialty Start Date End Date Pcp, Unknown PCP - General 06/03/24 documented as of this encounter Additional Source Comments The information contained in this document represents components of the legal health record. It is not the complete legal health record.[facility]
[2025-05-06 11:14] LABS: Alanine Aminotransferase 53 U/L (0-31); Albumin Level 5.4 g/dL (3.5-5.0); Alkaline Phosphatase 80 U/L (39-117); Anion Gap 26 (12-20); Aspartate Amino Transferase 38 U/L (5-31); Blood Urea Nitrogen 18 mg/dL (9-16); Calcium 9.8 mg/dL (8.4-10.2); Carbon Dioxide 14 mmol/L (22-29); Chloride 103 mmol/L (96-108); Creatinine Clr Calc Pharmacy 123.2; Estimated Glomerular Filt Rate > 60; Lipase 8 U/L (8-78); Magnesium 2.2 mg/dL (1.6-2.6); Potassium 3.4 mmol/L (3.3-5.1); Sodium 140 mmol/L (135-145); Total Protein 8.5 g/dL (6.5-8.0)
[2025-05-06] MEDS: iohexoL 350 MG/ML 100 ML INFUS..BTL IV (11:45)
[2025-05-06] MEDS: Magnesium Sulfate/H2O 2 GM/50 ML PIGGYBACK IV (11:59)
[2025-05-06] MEDS: Lactated Ringers 1,000 ML 999 ML IV (12:24)
[2025-05-06 13:47] LABS: Reflex Lactate? Lactic Acid Added
[2025-05-06 14:17] LABS: Appearance Urine Clear; Glucose Urine UA Negative (Negative); PH 5.5 (5.0-9.0); Specific Gravity - Urine >= 1.030 (1.005-1.025)
[2025-05-06 14:35] LABS: MANUAL DIFF FLAG NO
[2025-05-06 14:36] LABS: Hematocrit 33.3 % (37.0-47.0); Hemoglobin 11.0 g/dl (12.0-16.0); Imm Gran Abs Auto 0.10 X10*3/uL (0.00-0.03); Imm Gran Pct Auto 0.5 % (0.0-0.4); Lymphocytes Absolute Auto 1.2 X10*3/uL (1.2-4.9); Mean Corpuscular HGB Conc 33.0 g/dl (31.0-35.0); Mean Corpuscular Hemoglobin 28.5 pg (27.0-33.0); Mean Corpuscular Volume 86.3 fL (80.0-98.0); NRBC Abs Auto 0.000 X10*3/uL (0.0-0.012); NRBC Pct Auto 0.0 /100WBC (0.0-0.2); Platelet Count 314 X10*3/uL (160-400); Red Blood Count 3.86 X10*6/uL (4.20-5.50); White Blood Count 18.3 X10*3/uL (4.8-10.8)
[2025-05-06 14:57] LABS: Anion Gap 15 (12-20); Blood Urea Nitrogen 12 mg/dL (9-16); Calcium 9.0 mg/dL (8.4-10.2); Carbon Dioxide 22 mmol/L (22-29); Chloride 108 mmol/L (96-108); Creatinine Clr Calc Pharmacy 163.5; Estimated Glomerular Filt Rate > 60; Potassium 3.7 mmol/L (3.3-5.1); Sodium 141 mmol/L (135-145)
[2025-05-06 14:58] LABS: ~Lactic Acid-LAB USE ONLY 2.5 mmol/L (0.5-2.0)
[2025-05-06 16:33] LABS: Reflex Lactate? 2 Y
--- NOTE | 2025-05-06 16:38 | MHC.EDTECH ---
Lactic ordered at 1633 cancelled per Provider as Pt is being discharged.
== END 2025-05-06 17:15 | disposition home or self-care (01) ==
PROVIDERS: Physician Assistant Medical; Emergency Provider Emergency Medicine
DX: R11.2 Nausea with vomiting, unspecified (principal); I10 Essential (primary) hypertension; K44.9 Diaphragmatic hernia without obstruction or gangrene; Z79.899 Other long term (current) drug therapy; Z87.19 Personal history of other diseases of the digestive system
CPT/HCPCS: 36415; 74177; 80048; 80053; 81003; 83605; 83690; 83735; 84702; 85025; 87040; 93005; 96361; 96365; 96375; 99285; J1171; J1200; J2470; J2543; J2765; J3475; J7120; Q9967

== ENCOUNTER → 2025-05-06 10:39 | Outpatient (BNV) | payer OTHER, SELFPAY | PROVIDERS: Emergency Provider Emergency Medicine; Visit Provider Internal Medicine Cardiovascular Disease | DX: R00.0 Tachycardia, unspecified (principal) | CPT/HCPCS: 93010 ==

== ENCOUNTER → 2025-05-06 11:30 | Outpatient (BNV) | payer OTHER, SELFPAY | PROVIDERS: Emergency Provider Emergency Medicine; Visit Provider Radiology Diagnostic Radiology | DX: R10.9 Unspecified abdominal pain (principal); R11.2 Nausea with vomiting, unspecified | CPT/HCPCS: 74177 ==